=== PATIENT | male | born 1990 | race Caucasian/White ===

== ENCOUNTER → 2019-09-21 09:50 | Outpatient (BNVA) | payer MEDICAID, SELFPAY | PROVIDERS: PCP Family Medicine; Visit Provider Psychiatry & Neurology Psychiatry | DX: F33.2 Major depressive disorder, recurrent severe without psychotic features (principal); F43.12 Post-traumatic stress disorder, chronic; F41.9 Anxiety disorder, unspecified; F17.299 Nicotine dependence, other tobacco product, with unspecified nicotine-induced disorders; F15.20 Other stimulant dependence, uncomplicated | CPT/HCPCS: 99214 ==

== ENCOUNTER 2020-03-13 20:02 | Inpatient (IN) | payer MEDICAID, SELFPAY ==
--- NOTE | 2020-03-13 20:24 | ECG_ITS ---
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 Measurements Intervals Viola Rate: 96 P: 78 OH: 145 QRS: 77 QRSD: 93 T: 64 QT: 356 QTc: 451 Interpretive Statements SINUS RHYTHM NONSPECIFIC T-WAVE ABNORMALITY INTERPRETATION BASED ON A DEFAULT AGE OF 40 YEARS Compared to ECG 05/04/2019 23:56:30 T-wave abnormality now present Sinus tachycardia no longer present Electronically Signed On 03-14-2020 1:23:05 CDT by Jada Puri M.D. [id number]
--- NOTE | 2020-03-13 20:49 | W.ED.PSYCH ---
HPI - Psych General: Chief Complaint: Psychiatric Symptoms Stated Complaint: MHE Time Seen by Provider: 03/13/20 20:44 History of Present Illness: HPI Narrative: Patient comes in today for complaints of suicidal thoughts. Patient had a knife with him and stated that he wanted to cut himself with this. Patient does admit to using methamphetamines today. Patient does have a history of substance abuse but had been not using for several months and today he started using again. Patient had a lot of dissociative thoughts when trying to discuss his reasoning behind using methamphetamines today. I was unable to really interview the patient due to these thoughts. MD complaint: suicidal ideation and altered mental status Context: recent drug abuse (meth) Associated psychiatric symptoms: racing thoughts Associated symptoms: Reports suicidal ideation Review of Systems General: Reports: 10 or more systems reviewed and unremarkable except in HPI and below Psych: Reports: difficulty concentrating and suicidal ideation [facility] ED PFSH: Social History Smoking and tobacco status: current every day smoker cigarettes Years cigarettes smoked: 11 Quit status (tobacco): has tried quititng Number of times tried to quit tobacco: 2 Smoking risk assessment/counseling performed?: Yes Tobacco counseling given: counseling >3 minutes Physical Exam Const: COMMON NORMALS: no acute distress and patient oriented x3 GENERAL APPEARANCE: cooperative HENMT: COMMON NORMALS: normocephalic and Normal external nose present HEAD & SCALP: normal to inspection and normocephalic NOSE: Normal external nose present MOUTH: Normal oral and palatal mucosa present THROAT: posterior oropharynx normal Eye: GENERAL EYE: appearance normal, both eyes and all related structures Neck/C-Spine: COMMON NORMALS: full ROM Chest: COMMONS NORMALS: normal inspection of the chest Resp: COMMON NORMALS: normal respiratory effort EFFORT & INSPECTION: Yes able to speak in complete sentences Cardio: COMMON NORMALS: regular rate and regular rhythm RATE: regular rate RHYTHM: regular rhythm GI: COMMON NORMALS: non-tender Back/Pelvis: COMMON NORMALS: thoracic and lumbar spine normal to inspection Extremity: COMMON NORMALS: normal to inspection Neuro: COMMON NORMALS: patient oriented x3 and moves all extremities Psych: COMMON NORMALS: cooperative APPEARANCE: Yes unkempt ATTITUDE: Yes bizarre ACTIVITY/MOTOR BEHAVIOR: Yes fidgeting and Yes hyperactivity SPEECH: Yes minimal and Yes rapid MOOD & AFFECT: Yes anxious and Yes expansive affect THOUGHT PROCESS: incoherent and disorganized THOUGHT CONTENT: Yes Suicidality present ATTENTION/CONCENTRATION: Yes attention grossly impaired INSIGHT: Poor insight present (Psych) JUDGEMENT: Poor judgement present (Psych) Skin: COMMON NORMALS: no rashes or lesions noted GENERAL SKIN EXAM: no rashes or lesions noted MDM - Psych MDM Narrative: Medical decision making narrative: Patient comes in today in a disheveled appearance speaking incoherently and rapidly at times. Patient reports that he wants to hurt himself with a knife that he turned over to security. Patient was medicated with Benadryl, Haldol, and Ativan which calmed the patient. Vital signs were normal. Skin was warm and dry. No signs of injury was noted. Patient was voluntary to be admitted. Although patient is guarded for risk of elopement. Differential diagnosis includes psychosis acute, suicidality, substance abuse. Laboratory values noted a potassium of 2.9, substance positive for benzos, methamphetamines, and marijuana. Patient was treated for hypokalemia with p.o. potassium and IV fluids. Dr. Knight agreed to admission to [facility]. Dr. Bajwa agreed to orders. Patient agreed to admission. Patient needs admission for treatment of substance abuse and evaluation for suicidal thoughts, and protection of self. Lab Data: Labs: Lab Results 03/13/20 03/13/20 03/13/20 Range/Units 21:05 21:27 21:27 WBC 8.5 (4.0-10.0) 10^3/ uL RBC 4.85 (4.1-5.3) 10^6/u L Hgb 15.0 (11.7-16.6) g/dL Hct 43.3 (42.0-52.0) % MCV 89.3 (80-94) fL MCH 30.9 (28.0-34.0) pg MCHC 34.6 (30.0-36.0) g/dL RDW 12.4 (12.1-15.1) % Plt Count 279 (130-400) 10^3/c mm MPV 10.4 (7.4-10.4) fL Neut % (Auto) 51.8 % Lymph % (Auto) 30.9 % Hamblen % (Auto) 13.5 % Eos % (Auto) 2.7 % Baso % (Auto) 0.7 % Neut # (Auto) 4.41 (1.8-7.7) 10^3/u L Lymph # (Auto) 2.6 (0.8-4.8) 10^3/u L Hamblen # (Auto) 1.2 H (0.2-0.9) 10^3/u L Eos # (Auto) 0.2 (0.0-0.8) 10^3/u L Baso # (Auto) 0.1 (0.0-0.1) 10^3/u L Nucleated RBC % (a uto) 0 % Nucleated RBCs # 0.0 /100WBC Sodium 136 (136-145) mmol/L Potassium 2.9 L (3.5-5.1) mmol/L Chloride 101 (98-107) mmol/L Carbon Dioxide 20 L (22-29) mmol/L Anion Gap 17.9 (5-19) BUN 16 (6-20) mg/dL Creatinine 0.9 (0.7-1.2) mg/dL GFR Calculation 100.5 (90-130) mL/min Glucose 181 H (65-115) mg/dL Calculated Osmolal ity 283 L (285-295) mOsm/k g Calcium 9.1 (8.5-10.5) mg/dL Total Bilirubin 0.7 (0.15-1.2) mg/dL AST 51 H (0-40) U/L ALT 52 H (0-41) U/L Alkaline Phosphata se 74 (40-130) IU/L Total Protein 7.8 (6.6-8.7) g/dL Albumin 4.8 (3.5-5.2) g/dL Globulin 3.0 (1.3-4.6) g/dL TSH 0.85 (0.27-4.20) uIU/ mL Salicylates < 0.3 L (3-10) mg/dL Urine Opiates Scre en Negative (Negative) ng/mL Acetaminophen < 5.0 L (10-30) ug/mL Ur Barbiturates Sc reen Negative (Negative) ng/mL Phenytoin 0.8 L (10-20) ug/mL Valproic Acid 2.8 L (50-100) ug/mL Carbamazepine 2.0 L (4.0-12.0) ug/mL Ur Phencyclidine S crn Negative (Negative) ng/mL Ur Amphetamines Sc reen Positive H (Negative) ng/mL U Benzodiazepines Scrn Positive H (Negative) ng/mL Halbur (0.6-1.2) mmol/L Urine Cocaine Scre en Negative (Negative) ng/mL U Marijuana (THC) Screen Positive H (Negative) ng/mL Ethyl Alcohol < 10 (0-10) mg/dL 03/13/20 Range/Units 21:27 WBC (4.0-10.0) 10^3/ uL RBC (4.1-5.3) 10^6/u L Hgb (11.7-16.6) g/dL Hct (42.0-52.0) % MCV (80-94) fL MCH (28.0-34.0) pg MCHC (30.0-36.0) g/dL RDW (12.1-15.1) % Plt Count (130-400) 10^3/c mm MPV (7.4-10.4) fL Neut % (Auto) % Lymph % (Auto) % Hamblen % (Auto) % Eos % (Auto) % Baso % (Auto) % Neut # (Auto) (1.8-7.7) 10^3/u L Lymph # (Auto) (0.8-4.8) 10^3/u L Hamblen # (Auto) (0.2-0.9) 10^3/u L Eos # (Auto) (0.0-0.8) 10^3/u L Baso # (Auto) (0.0-0.1) 10^3/u L Nucleated RBC % (a uto) % Nucleated RBCs # /100WBC Sodium (136-145) mmol/L Potassium (3.5-5.1) mmol/L Chloride (98-107) mmol/L Carbon Dioxide (22-29) mmol/L Anion Gap (5-19) BUN (6-20) mg/dL Creatinine (0.7-1.2) mg/dL GFR Calculation (90-130) mL/min Glucose (65-115) mg/dL Calculated Osmolal ity (285-295) mOsm/k g Calcium (8.5-10.5) mg/dL Total Bilirubin (0.15-1.2) mg/dL AST (0-40) U/L ALT (0-41) U/L Alkaline Phosphata se (40-130) IU/L Total Protein (6.6-8.7) g/dL Albumin (3.5-5.2) g/dL Globulin (1.3-4.6) g/dL TSH (0.27-4.20) uIU/ mL Salicylates (3-10) mg/dL Urine Opiates Scre en (Negative) ng/mL Acetaminophen (10-30) ug/mL Ur Barbiturates Sc reen (Negative) ng/mL Phenytoin (10-20) ug/mL Valproic Acid (50-100) ug/mL Carbamazepine (4.0-12.0) ug/mL Ur Phencyclidine S crn (Negative) ng/mL Ur Amphetamines Sc reen (Negative) ng/mL U Benzodiazepines Scrn (Negative) ng/mL Halbur 0.1 L (0.6-1.2) mmol/L Urine Cocaine Scre en (Negative) ng/mL U Marijuana (THC) Screen (Negative) ng/mL Ethyl Alcohol (0-10) mg/dL Discharge Plan Discharge Patient Disposition: Admitted As Inpatient Admit Provider: Manish Knight Clinical Impression: Acute psychosis Drug-induced psychotic disorder Qualifiers: Complication of substance-induced condition: with unspecified complication Qualified Code(s): F19.959 - Other psychoactive substance use, unspecified with psychoactive substance-induced psychotic disorder, unspecified Condition: Stable Referrals: Maninder Cesar MD [Primary Care Provider] - Discharge Date/Time: 03/14/20 05:51 Coding Level of Care Code ED Group Fitness Assistant Department Head for Chg Fwd Exam Comprehensive
[2020-03-13] MEDS: diphenhydrAMINE 50 mg/mL SDV 1mL IM (21:05)
[2020-03-13] MEDS: LORazepam 2 mg/mL INJ 1 mL IM (21:06)
[2020-03-13] MEDS: haloperidol inj 5 mg/mL INJ 1 mL IM (21:06)
[2020-03-13 21:07] VITALS: BP 103/68; PULSE 90; RESP 20; O2SAT 95
[2020-03-13 21:34] LABS: Basophils # 0.1 10^3/uL (0.0-0.1); Basophils % 0.7 %; Eosinophils # 0.2 10^3/uL (0.0-0.8); Eosinophils % 2.7 %; Hematocrit 43.3 % (42.0-52.0); Lymphocytes # 2.6 10^3/uL (0.8-4.8); Lymphocytes % 30.9 %; Mean Corpuscular HGB Conc 34.6 g/dL (30.0-36.0); Mean Corpuscular Hemoglobin 30.9 pg (28.0-34.0); Mean Corpuscular Volume 89.3 fL (80-94); Mean Platelet Volume 10.4 fL (7.4-10.4); Monocytes # 1.2 10^3/uL (0.2-0.9); Monocytes % 13.5 %; Neutrophils # 4.41 10^3/uL (1.8-7.7); Neutrophils % 51.8 %; Nucleated Red Blood Cells % 0 %; Platelet Count 279 10^3/cmm (130-400); Red Blood Count 4.85 10^6/uL (4.1-5.3); Red Cell Distribution Width 12.4 % (12.1-15.1); White Blood Count 8.5 10^3/uL (4.0-10.0)
[2020-03-13 22:00] VITALS: BP 112/72; PULSE 99; RESP 20; O2SAT 99
[2020-03-13 22:01] LABS: Alanine Aminotransferase 52 U/L (0-41); Albumin Level 4.8 g/dL (3.5-5.2); Alkaline Phosphatase 74 IU/L (40-130); Anion Gap 17.9 (5-19); Aspartate Amino Transferase 51 U/L (0-40); Blood Urea Nitrogen 16 mg/dL (6-20); Calcium 9.1 mg/dL (8.5-10.5); Carbon Dioxide 20 mmol/L (22-29); Chloride 101 mmol/L (98-107); Glomerular Filtration Rate 100.5 mL/min (90-130); Glucose 181 mg/dL (65-115); Osmolality Calculated 283 mOsm/kg (285-295); Phenytoin Dilantin 0.8 ug/mL (10-20); Sodium 136 mmol/L (136-145); Thyroid Stimulating Hormone 0.85 uIU/mL (0.27-4.20); Total Bilirubin 0.7 mg/dL (0.15-1.2); Total Protein 7.8 g/dL (6.6-8.7); Valproic Acid Level 2.8 ug/mL (50-100)
[2020-03-13 22:16] LABS: Acetaminophen < 5.0 ug/mL (10-30); Alcohol Level < 10 mg/dL (0-10); Salicylate < 0.3 mg/dL (3-10)
[2020-03-13 22:20] LABS: Lithium 0.1 mmol/L (0.6-1.2); Potassium 2.9 mmol/L (3.5-5.1)
[2020-03-13 22:22] LABS: Amphetamines Screen Urine Positive (Negative); Barbiturates Screen Urine Negative (Negative); Benzodiazepines Screen Urine Positive (Negative); Cocaine Screen Urine Negative (Negative); Opiate Screen Urine Negative (Negative); PCP Screen Urine Negative (Negative); THC Screen Urine Positive (Negative)
[2020-03-13] MEDS: potassium chloride ER 10 mEq Tablet 40 MEQ PO (22:54)
[2020-03-13] MEDS: sodium chloride 0.9% 1,000 ML 999 ML IV (23:01)
[2020-03-14 00:45] VITALS: BP 101/55; PULSE 70; RESP 18; TEMP 36.6
[2020-03-14 04:00] VITALS: BP 98/63; PULSE 62; RESP 16
[2020-03-14 05:22] LABS: Anion Gap 11.6 (5-19); Blood Urea Nitrogen 14 mg/dL (6-20); Carbon Dioxide 24 mmol/L (22-29); Chloride 106 mmol/L (98-107); Glomerular Filtration Rate 134.3 mL/min (90-130); Glucose 98 mg/dL (65-115); Osmolality Calculated 282 mOsm/kg (285-295); Potassium 3.6 mmol/L (3.5-5.1); Sodium 138 mmol/L (136-145)
[2020-03-14 05:34] VITALS: BP 102/50; PULSE 62; RESP 18; O2SAT 98
[2020-03-14 06:02] VITALS: BP 137/88; PULSE 73; RESP 13; O2SAT 99
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
--- NOTE | 2020-03-14 13:11 | PC.RESP ---
Smoking Cessation sent to patient.
[2020-03-14 14:00] VITALS: BP 95/55; PULSE 60; RESP 16; TEMP 36.6; O2SAT 97
[2020-03-14] MEDS: trazodone 50 mg Tablet PO (21:25)
[2020-03-14] MEDS: hyDROXYzine 25 mg Capsule 50 MG PO (21:25)
[2020-03-14] MEDS: OLANZapine 5 mg ODT PO (21:25)
[2020-03-14 22:00] VITALS: RESP 15
[2020-03-15 06:00] VITALS: BP 98/65; PULSE 61; RESP 16; TEMP 36.7; O2SAT 97
[2020-03-15] MEDS: ARIPiprazole 10 mg Tablet PO (11:56)
--- NOTE | 2020-03-15 12:45 | P.PN_ITS ---
Subjective NPU Subjective: Interval history: Faisal presents today a little more with it and able to have conversations and express opinions about things, as he was mostly snowed as he is going through methamphetamine withdrawal. He has been off his medication for a while, but we discussed the risks, benefits, and alternatives of restarting those medications at an appropriate dose given the time off the medications. He understood and agreed to proceed as is documented in this note. He continues to be fairly lethargic and isolative, and reports that he is not sure what he really wants to do but is open to first starting the medication and getting that back on track. Mental Status Exam MSE Comments: This is a well-nourished, well-developed white male with adequate dress grooming and I contact. No abnormal movements except for psychomotor retardation. Cooperative with exam no acute distress speech was limited and decreased rate and volume mood described as tired; affect congruent. Thought process organized. Thought content: Patient denied any suicidal or homicidal ideations, no delusions were noted, he denied any auditory or visual hallucinations. Attention and concentration were intact and memory appears reliable with no more formally tested. He is alert and oriented ?3 insight and judgment are impaired. Impulse control is impaired. Vitals/I&O/Wt Last Vital Signs Temp 98.0 F 03/15/20 06:00 Pulse 61 03/15/20 06:00 Resp 16 03/15/20 06:00 BP 98/65 03/15/20 06:00 Pulse Ox 97 03/15/20 06:00 Weight last 48 hrs Weight 72.575 kg Data NPU : 03/13/20 21:27 03/14/20 05:01 A&P Additional A&P Information (1) Acute psychosis: (2) Drug-induced psychotic disorder: (3) Bipolar disorder: There is a 30-year-old white male with a long history of psychosis, methamphetamine use possible borderline mental functioning versus intellectual disability who presents off of his medication and relapsing on methamphetamine. 1. Continue current medication. 2. Continue every 15 minute checks for safety. 3. Encourage individual, group and milieu therapy. 4. Explore opportunities at sober living facilities at the highest level of treatment to which she is willing to commit. Involuntary Hold Information 96 Hour Hold: 96 Hour Involuntary Admission: No Attestations NPU Medical Necessity Statement*: Inpatient hospitalization is medically necessary in the clinically appropriate intervention at this time. We will monitor medications and make adjustments as indicated. Likely length of stay 3-5 days. Coding Level of Care Code Acute [employer] for Elizabeth Escamilla
[2020-03-15 14:00] VITALS: BP 103/69; PULSE 85; RESP 18; TEMP 36.6; O2SAT 96
[2020-03-15] MEDS: quetiapine 100 mg Tablet PO (14:10)
[2020-03-15] MEDS: BuSPIRONE 5 mg Tablet PO ×2 (14:10→22:01)
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
[2020-03-15 22:00] VITALS: BP 104/53; PULSE 67; RESP 17; TEMP 36.6; O2SAT 95
[2020-03-15] MEDS: mirtazapine 15 mg Tablet PO (22:00)
[2020-03-15] MEDS: hyDROXYzine 25 mg Capsule 50 MG PO (22:00)
[2020-03-15] MEDS: trazodone 50 mg Tablet PO (22:00)
[2020-03-15] MEDS: OLANZapine 5 mg ODT PO (22:01)
[2020-03-15] MEDS: quetiapine 100 mg Tablet 200 MG PO (22:01)
[2020-03-16 06:00] VITALS: BP 107/58; PULSE 55; RESP 16; TEMP 36.8; O2SAT 97
[2020-03-16] MEDS: ARIPiprazole 10 mg Tablet PO (08:35)
[2020-03-16] MEDS: BuSPIRONE 5 mg Tablet PO ×3 (08:35→21:13)
--- NOTE | 2020-03-16 11:09 | P.PN_ITS ---
Subjective NPU Subjective: Interval history: The patient presents today being more conversant and engaged on the unit. He continues to have moments of irritability and challenging interactions with staff. However, he is showing slow improvement and continues to endorse a desire to continue the medications and look for options regarding sober living treatment. He denies any side effects. The medications have been restarted and he is sleeping a lot and eating okay. Mental Status Exam MSE Comments: This is a well-nourished, well-developed white male with adequate dress grooming and I contact. No abnormal movements except for resolving psychomotor retardation. Cooperative with exam no acute distress. speech was limited and decreased rate and volume mood described as a little better; affect congruent. Thought process organized. Thought content: Patient denied any suicidal or homicidal ideations, no delusions were noted, he denied any auditory or visual hallucinations. Attention and concentration were intact and memory appears reliable with no more formally tested. He is alert and monet ented ?3 insight and judgment are impaired. Impulse control is impaired. Vitals/I&O/Wt Last Vital Signs Temp 98.3 F 03/16/20 06:00 Pulse 77 03/16/20 20:41 Resp 20 H 03/16/20 20:41 BP 100/65 03/16/20 20:41 Pulse Ox 95 03/16/20 20:41 Weight last 48 hrs Weight 72.745 kg Data NPU : 03/13/20 21:27 03/14/20 05:01 A&P Additional A&P Information (1) Acute psychosis: (2) Drug-induced psychotic disorder: (3) Bipolar disorder: There is a 30-year-old white male with a long history of psychosis, me thamphetamine use possible borderline mental functioning versus intellectual disability who presents off of his medication and relapsing on methamphetamine. 1. Continue current medication. 2. Continue every 15 minute checks for safety. 3. Encourage individual, group and milieu therapy. 4. Explore opportunities at sober living facilities at the highest level of treatment to which he is willing to commit. Involuntary Hold Information 96 Hour Hold: 96 Hour Involuntary Admission: No Attestations NPU Medical Necessity Statement*: Inpatient hospitalization is medically necessary in the clinically appropriate intervention at this time. We will monitor medications and make adjustments as indicated. Likely length of stay 2-4 days. Coding Level of Care Code Acute [employer] for Elizabeth Escamilla
[2020-03-16] MEDS: quetiapine 100 mg Tablet PO (14:53)
[2020-03-16] MEDS: LORazepam 2 mg/mL INJ 1 mL IM (15:22)
[2020-03-16] MEDS: haloperidol inj 5 mg/mL INJ 1 mL IM (15:22)
[2020-03-16] MEDS: diphenhydrAMINE 50 mg/mL SDV 1mL IM (15:22)
--- NOTE | 2020-03-16 15:23 | PC.NURSE ---
Patient behavior Patient came to the desk and to leave AMA. Explained we would have to call the doctor. He got on the phone and was yelling and then slamming the phone to the point it fell apart. We tried verbal de-escalation while notifying doctor. Called security, when Bryson arrived, patient became irate and enraged. Security tried to get patient in the bathroom for safety of staff and patients. Code 10 was called and boiler house operator and other staff showed up. While medications were being drawn staff placed patient in a safe hold and took him to the restraint room and placed him in 4 point restraints. Patient was given 50 benadryl IM, 5 haldol Im, and 2 ativan IM. Will continue to monitor.
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
[2020-03-16 20:41] VITALS: BP 100/65; PULSE 77; RESP 20; O2SAT 95
[2020-03-16] MEDS: mirtazapine 15 mg Tablet PO (21:13)
[2020-03-16] MEDS: quetiapine 100 mg Tablet 200 MG PO (21:14)
[2020-03-17 06:00] VITALS: RESP 15
[2020-03-17] MEDS: BuSPIRONE 5 mg Tablet PO ×2 (08:49→13:35)
[2020-03-17] MEDS: ARIPiprazole 10 mg Tablet PO (08:49)
[2020-03-17] MEDS: quetiapine 100 mg Tablet PO (13:35)
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
[2020-03-17 14:37] VITALS: RESP 15
== END 2020-03-17 14:45 | disposition home or self-care (01) | DRG 885 ==
LOC: ER 23:00 → NP 23:09
PROVIDERS: Admitting Provider Psychiatry & Neurology Psychiatry; Emergency Provider Emergency Medicine; PCP Family Medicine; Visit Provider Psychiatry & Neurology Psychiatry
DX: F23 Brief psychotic disorder (principal); R45.851 Suicidal ideations; F19.959 Other psychoactive substance use, unspecified with psychoactive substance-induced psychotic disorder, unspecified; F31.9 Bipolar disorder, unspecified; Z91.5 Personal history of self-harm
CPT/HCPCS: 12345; 80048; 80053; 80156; 80164; 80178; 80185; 80306; 80307; 84443; 85025; 93005; 96372; 99284; J1200; J1630; J2060; J3480; J7030

== ENCOUNTER 2020-06-23 08:39 | Inpatient (IN) | payer MEDICAID, SELFPAY ==
[2020-06-23 08:43] VITALS: BP 143/95; PULSE 113; RESP 18; TEMP 36.4; O2SAT 99; BMI 21.5
--- NOTE | 2020-06-23 08:44 | ECG_ITS ---
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 Measurements Intervals [place] Rate: 102 P: 55 CO: 147 QRS: 57 QRSD: 89 T: 48 QT: 334 QTc: 435 Interpretive Statements SINUS TACHYCARDIA ABNORMAL RHYTHM ECG Compared to ECG 03/13/2020 20:37:15 Sinus rhythm no longer present T-wave abnormality no longer present Electronically Signed On 06-24-2020 7:20:03 CDT by Dia Regan M.D. [id number]
--- NOTE | 2020-06-23 08:48 | ED_ITS ---
Documented by User: YURI Nugent 06/23/20 11:09 HPI - Psych General: Chief Complaint: Psychiatric Symptoms Stated Complaint: SI Time Seen by Provider: 06/23/20 08:43 History of Present Illness: HPI Narrative: Patient is a 30-year-old male who comes to the ED with SI. Past medical history of methamphetamine abuse and bipolar disorder. He was seen here for same complaint on March 13 and was admitted to the [facility]. Patient last used methamphetamines about 2 days ago. He said he has been feeling suicidal for the past couple days and states that last night he was having thoughts of suicide by overdose but talk to his mom to help him. Patient also said he feels very anxious and agitated. He denies any visual hallucinations but states symptoms using drugs he does have some auditory hallucinations but states that tell him to do anything. He says he is recently feeling depressed due to stresses of life. He says he has not been sleeping well and has not been eating much. Denies any HI. Patient wants to be admitted to the [facility] to get help with his drug addiction. Patient says he is not taking any of his current psych meds and says that he is out from all his medications. Associated symptoms: Reports auditory hallucinations (hears voices when using meth, but denies voices telling him to do anything.), depression and suicidal ideation; Deny visual hallucinations or homicidal ideation Review of Systems Const: Reports: change in appetite (eating less); Denies: fever(s), chills or fatigue Eyes: Denies: change in vision or eye discomfort ENMT: Denies: throat pain, odynophagia, nasal discharge or nasal congestion Card: Denies: chest pain, palpitations, edema, swelling of feet/ankles, dyspnea on exertion or orthopnea Resp: Denies: dyspnea, productive cough or non-productive cough GI: Denies: abdominal pain, nausea, vomiting, diarrhea, constipation or hematochezia : Denies: flank pain, difficulty urinating, dysuria or hematuria Musc: Denies: neck pain, back pain or extremity swelling Skin/Breast: Denies: rash or new lesions Neuro: Denies: headache(s), numbness in extremities or weakness in extremities Psych: Reports: anxiety, depression, sleeping less, irritability, auditory hallucinations (hears voices when using meth, but denies voices telling him to do anything.) and suicidal ideation; Denies: visual hallucinations or homicidal ideation PFSH ED PFSH: Medical History Bipolar disorder Social History Smoking and tobacco status: current every day smoker cigarettes Years cigarettes smoked: 11 Quit status (tobacco): has tried quititng Number of times tried to quit tobacco: 2 Smoking risk assessment/counseling performed?: Yes Tobacco counseling given: counseling >3 minutes Physical Exam Const: COMMON NORMALS: no acute distress, patient oriented x3 and alert GENERAL APPEARANCE: cooperative, comfortable and anxious HENMT: COMMON NORMALS: normocephalic HEAD & SCALP: normocephalic MOUTH: Normal oral and palatal mucosa present THROAT: posterior oropharynx normal and uvula midline Neck/C-Spine: COMMON NORMALS: supple GENERAL: Yes normal visual inspection Resp: COMMON NORMALS: normal respiratory effort, No retractions, No use of accessory muscles and clear to auscultation bilaterally AUSCULTATION: clear to auscultation bilaterally Cardio: COMMON NORMALS: regular rate, regular rhythm, S1 normal heart sound present, S2 normal heart sound present, No gallops present (Cardio), No clicks present (Cardio), No murmurs present (Cardio) and Peripheral pulses 2+ throughout RATE: regular rate RHYTHM: regular rhythm HEART SOUNDS: S1 normal heart sound present and S2 normal heart sound present PERIPHERAL PULSES: Peripheral pulses 2+ throughout GI: COMMON NORMALS: Normal to inspection, nondistended, normoactive bowel sounds present, Soft to palpation, non-tender and no masses PALPATION: Yes Soft to palpation : COMMON NORMALS: Yes no CVA tenderness BLADDER/KIDNEY EXAM: Yes no CVA tenderness Back/Pelvis: COMMON NORMALS: no CVA tenderness Extremity: COMMON NORMALS: normal to inspection and no pedal edema Neuro: COMMON NORMALS: patient oriented x3 and moves all extremities SENSORIUM/ORIENTATION: Yes alert Psych: COMMON NORMALS: Normal thought process present and speech normal APPEARANCE: Yes grossly normal ATTITUDE: Yes calm ACTIVITY/MOTOR BEHAVIOR: Yes appropriate eye contact, Yes fidgeting and Yes restless SPEECH: Yes normal speech MOOD & AFFECT: Yes anxious and Yes irritable THOUGHT PROCESS: Normal thought process present THOUGHT CONTENT: Yes Suicidality pres ent, No Homicidality present and Yes Hallucination(s) present auditory (Hears voices sometimes after he uses drugs. He says they are not telling him anything specific.); not visual ATTENTION/CONCENTRATION: Yes attention grossly intact and Yes concentration grossly intact MEMORY/COGNITION: Yes memory grossly intact and Yes cognition grossly intact INSIGHT: Fair insight present (Psych) JUDGEMENT: Limited judgement present (Psych) (Patient appears hyperactive and fidgety is probably still under the influence of methamphetamines so judgment is impaired.) Skin: GENERAL SKIN EXAM: dry skin MDM - Psych MDM Narrative: Medical decision making narrative: Patient is a 30-year-old male who comes to the ED with SI and drug abuse. Past medical history of methamphetamine abuse and bipolar disorder. He is currently not taking any of his medications. Patient recently used methamphetamines approximately 2 days ago. He is having thoughts of suicide by overdose. Patient says he would like to be admitted to the [facility] to get help. I talked with Dr. Salazar about patient case and he accepted admission to [facility]. Wrote an affidavit and left it in the chart to be used as needed if patient changes his mind and is trying to leave. Dr. Davis put in admission orders. Lab Data: Attestation: I reviewed the patient's lab results. Labs: Lab Results 06/23/20 06/23/20 06/23/20 Range/Units 09:00 09:00 10:03 WBC 10.3 H (4.0-10.0) 10^3/ uL RBC 4.73 (4.1-5.3) 10^6/u L Hgb 14.4 (11.7-16.6) g/dL Hct 43.6 (42.0-52.0) % MCV 92.2 (80-94) fL MCH 30.4 (28.0-34.0) pg MCHC 33.0 (30.0-36.0) g/dL RDW 12.7 (12.1-15.1) % Plt Count 370 (130-400) 10^3/c mm MPV 9.5 (7.4-10.4) fL Neut % (Auto) 50.3 % Lymph % (Auto) 33.4 % Bradley % (Auto) 9.1 % Eos % (Auto) 5.6 % Baso % (Auto) 1.0 % Neut # (Auto) 5.19 (1.8-7.7) 10^3/u L Lymph # (Auto) 3.4 (0.8-4.8) 10^3/u L Bradley # (Auto) 0.9 (0.2-0.9) 10^3/u L Eos # (Auto) 0.6 (0.0-0.8) 10^3/u L Baso # (Auto) 0.1 (0.0-0.1) 10^3/u L Nucleated RBC % (a uto) 0 % Nucleated RBCs # 0.0 /100WBC Sodium (136-145) mmol/L Potassium (3.5-5.1) mmol/L Chloride (98-107) mmol/L Carbon Dioxide (22-29) mmol/L Anion Gap (5-19) BUN (6-20) mg/dL Creatinine (0.7-1.2) mg/dL GFR Calculation (90-130) mL/min Glucose (65-115) mg/dL Calculated Osmolal ity (285-295) mOsm/k g Calcium (8.5-10.5) mg/dL Total Bilirubin (0.15-1.2) mg/dL AST (0-40) U/L ALT (0-41) U/L Alkaline Phosphata se (40-130) IU/L Total Protein (6.6-8.7) g/dL Albumin (3.5-5.2) g/dL Globulin (1.3-4.6) g/dL Urine Color Straw (Yellow) Urine Appearance Clear (CLEAR) Urine pH 7 (5-7) Ur Specific Gravit y 1.005 (1.005-1.030) Urine Protein Neg (Negative) Urine Glucose (UA) Norm (Normal) Urine Ketones Negative (Negative) Urine Blood Neg (Negative) Urine Nitrate Negative (Negative) Urine Bilirubin Neg (Negative) Urine Urobilinogen Norm (Negative) mg/dL Ur Leukocyte Daphne ase Negative (Negative) Salicylates (3-10) mg/dL Urine Opiates Scre en Negative (Negative) ng/mL Acetaminophen (10-30) ug/mL Ur Barbiturates Sc reen Negative (Negative) ng/mL Ur Phencyclidine S crn Negative (Negative) ng/mL Ur Amphetamines Sc reen Positive H (Negative) ng/mL U Benzodiazepines Scrn Negative (Negative) ng/mL Urine Cocaine Scre en Negative (Negative) ng/mL U Marijuana (THC) Screen Positive H (Negative) ng/mL Ethyl Alcohol (0-10) mg/dL 06/23/20 Range/Units 10:03 WBC (4.0-10.0) 10^3/ uL RBC (4.1-5.3) 10^6/u L Hgb (11.7-16.6) g/dL Hct (42.0-52.0) % MCV (80-94) fL MCH (28.0-34.0) pg MCHC (30.0-36.0) g/dL RDW (12.1-15.1) % Plt Count (130-400) 10^3/c mm MPV (7.4-10.4) fL Neut % (Auto) % Lymph % (Auto) % Bradley % (Auto) % Eos % (Auto) % Baso % (Auto) % Neut # (Auto) (1.8-7.7) 10^3/u L Lymph # (Auto) (0.8-4.8) 10^3/u L Bradley # (Auto) (0.2-0.9) 10^3/u L Eos # (Auto) (0.0-0.8) 10^3/u L Baso # (Auto) (0.0-0.1) 10^3/u L Nucleated RBC % (a uto) % Nucleated RBCs # /100WBC Sodium 140 (136-145) mmol/L Potassium 3.8 (3.5-5.1) mmol/L Chloride 104 (98-107) mmol/L Carbon Dioxide 29 (22-29) mmol/L Anion Gap 10.8 (5-19) BUN 7 (6-20) mg/dL Creatinine 0.6 L (0.7-1.2) mg/dL GFR Calculation 160.4 H (90-130) mL/min Glucose 98 (65-115) mg/dL Calculated Osmolal ity 288 (285-295) mOsm/k g Calcium 9.7 (8.5-10.5) mg/dL Total Bilirubin 0.2 (0.15-1.2) mg/dL AST 43 H (0-40) U/L ALT 70 H (0-41) U/L Alkaline Phosphata se 91 (40-130) IU/L Total Protein 7.1 (6.6-8.7) g/dL Albumin 4.2 (3.5-5.2) g/dL Globulin 2.9 (1.3-4.6) g/dL Urine Color (Yellow) Urine Appearance (CLEAR) Urine pH (5-7) Ur Specific Gravit y (1.005-1.030) Urine Protein (Negative) Urine Glucose (UA) (Normal) Urine Ketones (Negative) Urine Blood (Negative) Urine Nitrate (Negative) Urine Bilirubin (Negative) Urine Urobilinogen (Negative) mg/dL Ur Leukocyte Daphne ase (Negative) Salicylates < 0.3 L (3-10) mg/dL Urine Opiates Scre en (Negative) ng/mL Acetaminophen < 5.0 L (10-30) ug/mL Ur Barbiturates Sc reen (Negative) ng/mL Ur Phencyclidine S crn (Negative) ng/mL Ur Amphetamines Sc reen (Negative) ng/mL U Benzodiazepines Scrn (Negative) ng/mL Urine Cocaine Scre en (Negative) ng/mL U Marijuana (THC) Screen (Negative) ng/mL Ethyl Alcohol < 10 (0-10) mg/dL EKG Data^: EKG 1: Attestation: I personally reviewed and interpreted this EKG as follows: EKG interpretation date: 06/23/20 Interpretation: Sinus tachycardia, 102 bpm, no ST segment elevation depression seen. Discharge Plan Discharge Patient Disposition: Admitted As Inpatient Clinical Impression: Suicidal ideation, Drug-induced psychotic disorder, Methamphetamine abuse Condition: Stable Referrals: Maninder Cesar MD [Primary Care Provider] - Coding Level of Care Code ED Slubber Tender for Chg Fwd Exam Comprehensive Documented by User: Gucci Davis DO 06/23/20 10:41 HPI - Psych General: Chief Complaint: Psychiatric Symptoms Stated Complaint: SI Time Seen by Provider: 06/23/20 08:43 History of Present Illness: HPI Narrative: 30-year-old male initially seen by our PA Lonnie Wagner. He has a history of methamphetamine abuse he is quite agitated. He had thoughts of suicide intermittently last week they have been progressively more intense. He also reports having auditory and visual hallucinations. Denies any recent flulike symptoms cough or cold. Last time he used methamphetamines he tells me was yesterday. MD complaint: suicidal ideation Onset (ago): day(s) Duration: intermittent and getting worse History of same: Yes Relieving factors: none Exacerbating factors: none Context: recent drug abuse Associated psychiatric symptoms: depression, suicidal ideation, racing thoughts, auditory hallucinations and visual hallucinations Associated symptoms: Reports auditory hallucinations, visual hallucinations and suicidal ideation Treatments prior to arrival: none If self harm: admits thoughts of self harm Review of Systems Const: Denies: fever(s), chills, body aches, change in appetite, fatigue or malaise ENMT: Denies: throat pain, ear or mastoid pain, nasal discharge or nasal c ongestion Card: Denies: chest pain, edema, dyspnea on exertion or orthopnea Resp: Denies: dyspnea, productive cough or non-productive cough GI: Denies: abdominal pain, nausea, vomiting, hematemesis, coffee ground emesis, diarrhea, constipation, bloating, hematochezia or melena : Denies: flank pain, dysuria, urinary frequency or urinary urgency Skin/Breast: Denies: rash or pruritus Psych: Reports: visual hallucinations, auditory hallucinations and suicidal ideation [facility] ED PFSH: Medical History Bipolar disorder Social History Smoking and tobacco status: current every day smoker cigarettes Years cigarettes smoked: 11 Quit status (tobacco): has tried quititng Number of times tried to quit tobacco: 2 Smoking risk assessment/counseling performed?: Yes Tobacco counseling given: counseling >3 minutes Physical Exam Const: COMMON NORMALS: no acute distress GENERAL APPEARANCE: cooperative and comfortable ORIENTATION/CONSCIOUSNESS: Yes awake, Yes oriented to person, Yes oriented to place and Yes oriented to time HENMT: COMMON NORMALS: normocephalic, atraumatic and hearing grossly normal bilaterally HEAD & SCALP: normocephalic and atraumatic Neck/C-Spine: COMMON NORMALS: no JVD Resp: COMMON NORMALS: normal respiratory effort, No retractions, No use of accessory muscles and clear to auscultation bilaterally AUSCULTATION: clear to auscultation bilaterally Cardio: COMMON NORMALS: no JVD, regular rate, regular rhythm and No murmurs present (Cardio) RATE: regular rate RHYTHM: regular rhythm GI: COMMON NORMALS: Soft to palpation and No hepatosplenomegaly present AUSCULTATION: Yes normoactive bowel sounds PALPATION: Yes Soft to palpation, No Tenderness to palpation present (GI), No Guarding due to palpation present (GI) and Yes No hepatosplenomegaly present Extremity: COMMON NORMALS: normal to inspection, capillary refill normal, no clubbing, cyanosis or edema, no calf tenderness and no pedal edema Neuro: SENSORIUM/ORIENTATION: Yes oriented to person, Yes oriented to place and Yes oriented to time Skin: COMMON NORMALS: no rashes or lesions noted GENERAL SKIN EXAM: no rashes or lesions noted MDM - Psych MDM Narrative: Medical decision making narrative: Reviewed chart medically cleared to go to psych. Orders written. Lonnie Wagner is talked to Dr. Summers. Lab Data: Labs: Lab Results 06/23/20 06/23/20 06/23/20 Range/Units 09:00 09:00 10:03 WBC 10.3 H (4.0-10.0) 10^3/ uL RBC 4.73 (4.1-5.3) 10^6/u L Hgb 14.4 (11.7-16.6) g/dL Hct 43.6 (42.0-52.0) % MCV 92.2 (80-94) fL MCH 30.4 (28.0-34.0) pg MCHC 33.0 (30.0-36.0) g/dL RDW 12.7 (12.1-15.1) % Plt Count 370 (130-400) 10^3/c mm MPV 9.5 (7.4-10.4) fL Neut % (Auto) 50.3 % Lymph % (Auto) 33.4 % Bradley % (Auto) 9.1 % Eos % (Auto) 5.6 % Baso % (Auto) 1.0 % Neut # (Auto) 5.19 (1.8-7.7) 10^3/u L Lymph # (Auto) 3.4 (0.8-4.8) 10^3/u L Bradley # (Auto) 0.9 (0.2-0.9) 10^3/u L Eos # (Auto) 0.6 (0.0-0.8) 10^3/u L Baso # (Auto) 0.1 (0.0-0.1) 10^3/u L Nucleated RBC % (a uto) 0 % Nucleated RBCs # 0.0 /100WBC Sodium (136-145) mmol/L Potassium (3.5-5.1) mmol/L Chloride (98-107) mmol/L Carbon Dioxide (22-29) mmol/L Anion Gap (5-19) BUN (6-20) mg/dL Creatinine (0.7-1.2) mg/dL GFR Calculation (90-130) mL/min Glucose (65-115) mg/dL Calculated Osmolal ity (285-295) mOsm/k g Calcium (8.5-10.5) mg/dL Total Bilirubin (0.15-1.2) mg/dL AST (0-40) U/L ALT (0-41) U/L Alkaline Phosphata se (40-130) IU/L Total Protein (6.6-8.7) g/dL Albumin (3.5-5.2) g/dL Globulin (1.3-4.6) g/dL Urine Color Straw (Yellow) Urine Appearance Clear (CLEAR) Urine pH 7 (5-7) Ur Specific Gravit y 1.005 (1.005-1.030) Urine Protein Neg (Negative) Urine Glucose (UA) Norm (Normal) Urine Ketones Negative (Negative) Urine Blood Neg (Negative) Urine Nitrate Negative (Negative) Urine Bilirubin Neg (Negative) Urine Urobilinogen Norm (Negative) mg/dL Ur Leukocyte Daphne ase Negative (Negative) Salicylates (3-10) mg/dL Urine Opiates Scre en Negative (Negative) ng/mL Acetaminophen (10-30) ug/mL Ur Barbiturates Sc reen Negative (Negative) ng/mL Ur Phencyclidine S crn Negative (Negative) ng/mL Ur Amphetamines Sc reen Positive H (Negative) ng/mL U Benzodiazepines Scrn Negative (Negative) ng/mL Urine Cocaine Scre en Negative (Negative) ng/mL U Marijuana (THC) Screen Positive H (Negative) ng/mL Ethyl Alcohol (0-10) mg/dL 06/23/20 Range/Units 10:03 WBC (4.0-10.0) 10^3/ uL RBC (4.1-5.3) 10^6/u L Hgb (11.7-16.6) g/dL Hct (42.0-52.0) % MCV (80-94) fL MCH (28.0-34.0) pg MCHC (30.0-36.0) g/dL RDW (12.1-15.1) % Plt Count (130-400) 10^3/c mm MPV (7.4-10.4) fL Neut % (Auto) % Lymph % (Auto) % Bradley % (Auto) % Eos % (Auto) % Baso % (Auto) % Neut # (Auto) (1.8-7.7) 10^3/u L Lymph # (Auto) (0.8-4.8) 10^3/u L Bradley # (Auto) (0.2-0.9) 10^3/u L Eos # (Auto) (0.0-0.8) 10^3/u L Baso # (Auto) (0.0-0.1) 10^3/u L Nucleated RBC % (a uto) % Nucleated RBCs # /100WBC Sodium 140 (136-145) mmol/L Potassium 3.8 (3.5-5.1) mmol/L Chloride 104 (98-107) mmol/L Carbon Dioxide 29 (22-29) mmol/L Anion Gap 10.8 (5-19) BUN 7 (6-20) mg/dL Creatinine 0.6 L (0.7-1.2) mg/dL GFR Calculation 160.4 H (90-130) mL/min Glucose 98 (65-115) mg/dL Calculated Osmolal ity 288 (285-295) mOsm/k g Calcium 9.7 (8.5-10.5) mg/dL Total Bilirubin 0.2 (0.15-1.2) mg/dL AST 43 H (0-40) U/L ALT 70 H (0-41) U/L Alkaline Phosphata se 91 (40-130) IU/L Total Protein 7.1 (6.6-8.7) g/dL Albumin 4.2 (3.5-5.2) g/dL Globulin 2.9 (1.3-4.6) g/dL Urine Color (Yellow) Urine Appearance (CLEAR) Urine pH (5-7) Ur Specific Gravit y (1.005-1.030) Urine Protein (Negative) Urine Glucose (UA) (Normal) Urine Ketones (Negative) Urine Blood (Negative) Urine Nitrate (Negative) Urine Bilirubin (Negative) Urine Urobilinogen (Negative) mg/dL Ur Leukocyte Daphne ase (Negative) Salicylates < 0.3 L (3-10) mg/dL Urine Opiates Scre en (Negative) ng/mL Acetaminophen < 5.0 L (10-30) ug/mL Ur Barbiturates Sc reen (Negative) ng/mL Ur Phencyclidine S crn (Negative) ng/mL Ur Amphetamines Sc reen (Negative) ng/mL U Benzodiazepines Scrn (Negative) ng/mL Urine Cocaine Scre en (Negative) ng/mL U Marijuana (THC) Screen (Negative) ng/mL Ethyl Alcohol < 10 (0-10) mg/dL Discharge Plan Discharge Patient Disposition: Admitted As Inpatient Clinical Impression: Suicidal ideation, Drug-induced psychotic disorder, Methamphetamine abuse Condition: Stable Referrals: Maninder Cesar MD [Primary Care Provider] - Coding Level of Care Code ED Slubber Tender for Chg Fwd Exam Comprehensive
[2020-06-23 08:51] VITALS: BP 143/83; PULSE 113; RESP 18; O2SAT 100
--- NOTE | 2020-06-23 08:55 | PC.NURSE ---
Pt belongings removed, pt placed in paper scrubs and sitter at bedside. Pt instructed to give urine sample.
[2020-06-23 09:12] LABS: Add Urine Microscopic? NO
[2020-06-23 09:15] LABS: Bilirubin Urine Neg (Negative); Blood Urine Neg (Negative); Glucose Urine UA Norm (Normal); Ketones Urine Negative (Negative); Leukocyte Esterase Urine Negative (Negative); Nitrate Urine Negative (Negative); Protein Urine Neg (Negative); Specific Gravity, Urine 1.005 (1.005-1.030); Urine Appearance Clear (CLEAR); Urine Color Straw (Yellow); Urobilinogen Urine Norm (Negative); pH Urine 7 (5-7)
[2020-06-23] MEDS: LORazepam 2 mg/mL INJ 1 mL IM (09:16)
[2020-06-23 09:24] LABS: Amphetamines Screen Urine Positive (Negative); Barbiturates Screen Urine Negative (Negative); Benzodiazepines Screen Urine Negative (Negative); Cocaine Screen Urine Negative (Negative); Opiate Screen Urine Negative (Negative); PCP Screen Urine Negative (Negative); THC Screen Urine Positive (Negative)
--- NOTE | 2020-06-23 09:27 | PC.NURSE ---
sandwich and drink given
[2020-06-23 10:15] LABS: Basophils # 0.1 10^3/uL (0.0-0.1); Eosinophils # 0.6 10^3/uL (0.0-0.8); Eosinophils % 5.6 %; Hematocrit 43.6 % (42.0-52.0); Hemoglobin 14.4 g/dL (11.7-16.6); Lymphocytes # 3.4 10^3/uL (0.8-4.8); Lymphocytes % 33.4 %; Mean Corpuscular Hemoglobin 30.4 pg (28.0-34.0); Mean Corpuscular Volume 92.2 fL (80-94); Mean Platelet Volume 9.5 fL (7.4-10.4); Monocytes # 0.9 10^3/uL (0.2-0.9); Monocytes % 9.1 %; Neutrophils # 5.19 10^3/uL (1.8-7.7); Neutrophils % 50.3 %; Nucleated Red Blood Cells % 0 %; Platelet Count 370 10^3/cmm (130-400); Red Blood Count 4.73 10^6/uL (4.1-5.3); Red Cell Distribution Width 12.7 % (12.1-15.1); White Blood Count 10.3 10^3/uL (4.0-10.0)
[2020-06-23 10:34] LABS: Alanine Aminotransferase 70 U/L (0-41); Albumin Level 4.2 g/dL (3.5-5.2); Alkaline Phosphatase 91 IU/L (40-130); Anion Gap 10.8 (5-19); Aspartate Amino Transferase 43 U/L (0-40); Blood Urea Nitrogen 7 mg/dL (6-20); Calcium 9.7 mg/dL (8.5-10.5); Carbon Dioxide 29 mmol/L (22-29); Chloride 104 mmol/L (98-107); Globulin 2.9 g/dL (1.3-4.6); Glomerular Filtration Rate 160.4 mL/min (90-130); Glucose 98 mg/dL (65-115); Osmolality Calculated 288 mOsm/kg (285-295); Potassium 3.8 mmol/L (3.5-5.1); Sodium 140 mmol/L (136-145); Total Bilirubin 0.2 mg/dL (0.15-1.2); Total Protein 7.1 g/dL (6.6-8.7)
[2020-06-23 10:43] LABS: Acetaminophen < 5.0 ug/mL (10-30); Alcohol Level < 10 mg/dL (0-10); Salicylate < 0.3 mg/dL (3-10)
[2020-06-23] MEDS: haloperidol inj 5 mg/mL INJ 1 mL IM (11:04)
[2020-06-23] MEDS: diphenhydrAMINE 50 mg/mL SDV 1mL IM (11:04)
[2020-06-23 11:30] VITALS: BP 119/65; PULSE 109; RESP 21; TEMP 36.9; O2SAT 100
[2020-06-23 12:04] VITALS: BP 111/64; PULSE 91; RESP 18; TEMP 36.9; O2SAT 96
--- NOTE | 2020-06-23 12:15 | PC.NURSE ---
Arrival to floor from ED Patient brought from ED. Patient asleep when in wheelchair. ED personnel quality assurance auditor stated they had to give him medication for agitation. Per [employer], patient stood up from wheelchair and fell onto bed and went back to sleep. Nurses had to change patient into green scrubs. Patient would not wake enough to answer any questions or signs any admission forms.
[2020-06-23 18:13] VITALS: BP 128/83; PULSE 89; RESP 18; TEMP 36.8; O2SAT 99
[2020-06-23] MEDS: hyDROXYzine 25 mg Capsule 50 MG PO (18:25)
[2020-06-23 22:00] VITALS: BP 128/83; PULSE 89; RESP 18; TEMP 36.8; O2SAT 99
[2020-06-24 06:00] VITALS: BP 116/79; PULSE 92; RESP 16; TEMP 36.7; O2SAT 97
[2020-06-24 09:52] VITALS: BP 116/79; PULSE 92; RESP 16; TEMP 36.7; O2SAT 97
[2020-06-24] MEDS: LORazepam 2 mg/mL INJ 1 mL IM (10:45)
[2020-06-24] MEDS: ziprasidone 20 mg/mL SDV (10:45)
--- NOTE | 2020-06-24 10:45 | PC.NURSE ---
Addendum entered by Petra Soriano LPN 06/24/20 11:37: prn meds effective pt asleep in bed in room Original Note: BEHAVIOR/DESTRUCTION OF PROPERTY/PRN GEODON & ATIVAN PT CAME DOWN THE HALLWAY, UPSET THAT HE HASN'T SPOKEN TO A SECURITY MANAGER YET, YELLING AND CURSING, PUNCHED 2 HOLES INTO THE WALL IN THE MALE SIDE HALLWAY. STAFF ASKS PT TO CEASE BEHAVIOR, PT SPOKE WITH THE PHYSICIAN. PHYSICIAN ORDERED STAT INJECTIONS OF GEODON/ATIVAN. GEODON 20 MG GIVEN IM IN LEFT DELTOID, ATIVAN 2 MG GIVEN IM IN RIGHT DELTOID. WILL CONT TO MONITOR BEHAVIOR
[2020-06-24 14:00] VITALS: RESP 17
[2020-06-24] MEDS: quetiapine 100 mg Tablet PO ×2 (16:31→20:38)
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
[2020-06-24] MEDS: LORazepam 1 mg Tablet PO ×2 (18:32→20:38)
[2020-06-24] MEDS: haloperidol 5 mg Tablet PO (18:32)
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
[2020-06-24] MEDS: quetiapine 300 mg Tablet 150 MG PO (20:38)
[2020-06-24] MEDS: mirtazapine 30 mg Tablet PO (20:39)
[2020-06-24 22:00] VITALS: BP 97/51; PULSE 89; RESP 16; TEMP 36.6; O2SAT 98
[2020-06-25 06:00] VITALS: RESP 16
[2020-06-25] MEDS: quetiapine 100 mg Tablet PO ×2 (08:20→13:35)
[2020-06-25] MEDS: LORazepam 1 mg Tablet PO (08:20)
--- NOTE | 2020-06-25 13:09 | P.PN_ITS ---
Subjective NPU Subjective: Interval history: I am trying to get into rehab. Get me into rehab. What I to talk to Kristen. And are not I getting into rehab. Patient states that he slept well last night. He denies feeling uncomfortable today. He denies needing any adjustments in medications. He just feels that he should be able to leave here and go to rehab now. Mental Status Exam MSE Comments: Mental Status Exam: Patient is alert interpersonally engaged male. He is in no apparent physical distress. Eye contact is fleeting. He is not believed to be a reliable informant primarily due to cognitive issues. Appearance: hygiene is fair; no gross neurological deficits., gait is unremark able; AIMS=0 Speech: Speech is of normal rate and rhythm and easily understood. Questions are answered in short but complete sentences. Thought processes: Thought processes are concrete. Judgment is adequate for safety. Psychotic processes: There is no indication of guarding or paranoia. There is no attention to the internal stimuli. Auditory and visual hallucinations are denied. Judgment: Insight is poor. Problem solving skills are adequate for safety. Orientation: The patient is oriented to person, place time and situation. Memory: no deficits noted in immediate, intermediate, or remote spheres. Attention: The patient is alert and interpersonally engaged. Language: Verbalizations are coherent. Fund of knowledge: Fund of knowledge is poor. Affect/Mood: Affect is extremely irritable with a undeclared mood. pt denies suicidal ideation Affective range is constricted Psychosis: Perception and reality testing are significantly impaired by his level of cognitive disability. This is amplified by the irritability most likely secondary to methamphetamine withdrawal. Cognition: Patient Appearance: Appropriate Level of Consciousness: Awake, Alert, Appropriate and Follows Commands Patient Cognition Impaired: No Ability to Follow Directions: Good Patient Orientation (long list): Person, Place, Time, Name, Age, Birthday, Day of Month, Day of Week, Month, Time of Day and Year Comprehension Ability: No Impairment Hallucination Type: None Delusion Description: Not Present Thought Process: Appropriate Affect: Affect Description: Appropriate and Calm Depressive Symptoms: Increased Anxiety and Recurrent Thoughts of or Suicide Behavior: Patient Behavior: Appropriate Speech Pattern: Appropriate and Clear Vitals/I&O/Wt Last Vital Signs Temp 97.8 F 06/24/20 22:00 Pulse 89 06/24/20 22:00 Resp 16 06/25/20 06:00 BP 97/51 06/24/20 22:00 Pulse Ox 98 06/24/20 22:00 Data NPU : 06/23/20 10:03 06/23/20 10:03 A&P Assessment and plan (1) Drug-induced psychotic disorder: Status: Acute (2) Methamphetamine abuse: Status: Acute Additional A&P Information Due to the psychiatric conditions and treatment listed in the Assessment and Plan - the patient requires continued hospitalization. Will provide a safe and therapeutic environment for patient.. Will continue inpatient treatment to allow for medication adjustment and monitoring. Will continue q15 min safety checks. Will continue past effective medications: Imipramine Tab (Tofranil Tab) 100 MG PO BEDTIME Mirtazapine Tab (Remeron Tab) 30 MG PO BEDTIME Quetiapine Tab (Seroquel Tab) 200 MG PO HS Quetiapine Tab (Seroquel Tab) 100 MG PO BIDWM And add lorazepam 1 mg 3 times daily especially for the withdrawal. Hospital day #2: The patient continues to demand entry into methamphetamine rehab immediately. Fuses to engage in conversation on any other topic. He denies that he is in physical or emotional distress even though his irritability is to an extent that he is not capable of engaging in a cooperative discussion. He voiced repeatedly his displeasure and his services he is getting here. He was reminded that he is a voluntary patient and is allowed to leave at his discretion. Perception and reality testing are significantly impaired by his level of cognitive disability. This is amplified by the irritability most likely secondary to methamphetamine withdrawal. This pattern was observed through his several admissions at this time last year. At that time he eventually was able to come into the hospital, remain long enough to have his amphetamine withdrawal resolved and be able to engage in a cooperative effort to get into rehab which was done successfully at that time. Evidence of his cognitive disability is that he learned nothing from that experience and has now returned to demanding and threatening demeanor for things that are out of our control. Plan: Continue previously effective medication regimen. Monitor patient's mood, sleep, appetite, and behavior closely. Encourage patient to participate in individual and group therapeutic sessions on the chilel. Estimated length of stay 5 days The expected benefits and potential side effects of patient's psychiatric med ications were discussed with the patient. The patient understands and consents to treatment. CRITERIA FOR DISCHARGE: stable on medications and no longer an imminent threat to self or others Involuntary Hold Information 96 Hour Hold: 96 Hour Involuntary Admission: No Attestations NPU Medical Necessity Statement*: Patient will remain in hospital another 2-4 nights until placement for methamphetamine rehab can be acquired. 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
[2020-06-25] MEDS: LORazepam 2 mg Tablet PO (13:35)
--- NOTE | 2020-06-25 14:07 | PC.NURSE ---
Patient Agitation Patient at nurses station on the phone with Kaila from [facility] for screening for rehab placement. Patient screaming into phone and cussing. Patient threw phone back into nurses station, line was on hold, patient states he will talk to her when she is back on the line. Once he is talking on the phone again he is yelling and cussing at them and hangs up. Patient offered medications to help with agitation and anxiety. Patient refused and screamed F you you stupid B. Dr. groves approached patient and asked what we could do to help patient. Patient states we should know what to do. Gave patient option to stay, but exercised his right to leave against medical advice. refused to sign AMA form and personal belonging form.
--- NOTE | 2020-06-25 14:24 | P.DS_ITS ---
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 This is his 15th admission to the neuropsychiatric unit since April 2012. His pattern over the past 2 years is to be admitted and a condition of methamphetamine psychosis. He is extremely irritable and easily agitated. Typically he will request to be admitted so that he can be placed in a rehabilitation program. However once on the unit, he become so volatile that he demands to leave. He is not an imminent risk to self or others and is allowed to leave AGAINST MEDICAL ADVICE. There have been several occasions when he was able to be maintained on the unit long enough for him to stabilize medically. At times, he has been here for several weeks without the volatility and aggression. He was hospitalized last June and finally was able to access placement in [facility] program. He remained free of hospitalizations until February of this year. However at that time, his methamphetamine withdrawal was managed he was restarted on his medications and was discharged. He returns today being admitted after having self discontinuing his medications. He is demanding to be placed in rehabilitation but really is not thinking clearly enough to be able to establish any type of a treatment plan. He was unable to be interviewed for more than a few minutes during which time he demanded first to be discharged and then for medication to help with his withdrawal. That was facilitated with the intent of restarting his previously effective medications as early as possible. Hospital Course Discharge Summary Assessment and plan (1) Drug-induced psychotic disorder: Status: Acute (2) Methamphetamine abuse: Status: Acute Additional A&P Information Due to the psychiatric conditions and treatment listed in the Assessment and Plan - the patient requires continued hospitalization. Will provide a safe and therapeutic environment for patient.. Will continue inpatient treatment to allow for medication adjustment and monitoring. Will continue q15 min safety checks. Will continue past effective medications: Imipramine Tab (Tofranil Tab) 100 MG PO BEDTIME Mirtazapine Tab (Remeron Tab) 30 MG PO BEDTIME Quetiapine Tab (Seroquel Tab) 200 MG PO HS Quetiapine Tab (Seroquel Tab) 100 MG PO BIDWM And add lorazepam 1 mg 3 times daily especially for the withdrawal. Hospital day #3: Interval history: I am trying to get into rehab. Get me into rehab. What I to talk to Kristen. And are not I getting into rehab. Patient states that he slept well last night. He denies feeling uncomfortable today. He denies needing any adjustments in medications. He just feels that he should be able to leave here and go to rehab now. The patient continues to demand entry into methamphetamine rehab immediately. Fuses to engage in conversation on any other topic. He denies that he is in physical or emotional distress even though his irritability is to an extent that he is not capable of engaging in a cooperative discussion. He voiced repeatedly his displeasure and his services he is getting here. He was reminded that he is a voluntary patient and is allowed to leave at his discretion. Perception and reality testing are significantly impaired by his level of cognitive disability. This is amplified by the irritability most likely secondary to methamphetamine withdrawal. This pattern was observed through his several admissions at this time last year. At that time he eventually was able to come into the hospital, remain long enough to have his amphetamine withdrawal resolved and be able to engage in a cooperative effort to get into rehab which was done successfully at that time. Evidence of his cognitive disability is that he learned nothing from that experience and has now returned to demanding and threatening demeanor for things that are out of our control. Plan: Continue previously effective medication regimen. Later that day, he continued his demanding explosive behavior. He repeatedly demanded to be placed in a rehabilitation program today. When confronted with the fact that one was not available today but that we would make him comfortable until 1 could be found just like the last time we found him placement, he called us liars and started displaying aggressive behavior hitting the wall and throwing phones. He did not make threats against staff. He did not make threats against himself. Multiple times he was offered as needed medication to help with his emotional distress. There is no indication of psychosis. There is no attention to internal stimuli. However he was not thinking logically. When given the choice of allowing us to help him maintain his behavior within safe limits or utilizing his option to leave AGAINST MEDICAL ADVICE, the patient decided to leave AGAINST MEDICAL ADVICE. He was informed that he was eligible to return and we would again assist him with finding a rehabilitation program with the expectation that he would maintain his behavior within acceptable limits such that staff and fellow patients could be guaranteed their safety. Involuntary Hold Information 96 Hour Hold: 96 Hour Involuntary Admission: No Mental Status Exam MSE Comments: Mental Status Exam: The patient was alert and interpersonally engaged. Eye contact was fleeting. He was observed to pace back and forth in front of the nurses station. His attitude was hostile. He frequently would slam his fist against the wall, the telephone, or the glass in front of the nurses station. He continued to make demands even though he was told that we were not in a position to caleb his demands. Appearance: hygiene is fair; no gross neurological deficits., gait is unremarkable; AIMS=0 Speech: Speech is of normal rate and rhythm and easily understood. Questions were answered in single complete sentences. Thought processes: Thought processes are concrete. Judgment is adequate for safety. Associations: intact Psychotic processes: There is no indication of guarding or paranoia. There is no attention to the internal stimuli. Auditory and visual hallucinations are denied. Judgment: Insight is fair. Problem solving skills are adequate for safety. Orientation: The patient is oriented to person, place time and situation. Memory: no deficits noted in immediate, intermediate, or remote spheres. Attention: The patient is alert and interpersonally engaged. Language: Verbalizations are coherent. Fund of knowledge: Fund of knowledge is adequate. Affect/Mood: Affect is irritable with a depressed mood. pt denies suicidal ideation Affective range is labile Psychosis: perception unimpaired primarily through cognitive deficit and severe cognitive distortion.; reality testing intact. 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
--- NOTE | 2020-06-26 15:33 | P.SS_ITS ---
Short Stay Summary Providers Date of Admit/Discharge: 06/26/20 Attending Provider: Hari Salazar MD Primary Care Provider: Maninder Cesar MD Chief Complaint: SI HPI History of Present Illness Julian Knowles is a 30 year old male who had just been discharged AGAINST MEDICAL ADVICE from the neuropsychiatric unit less than an hour before his presentation to the emergency room with the complaints described by the emergency room physician. The discharge summary from that hospitalization is listed below as it very much explains the process by which this patient came to be seen in the emergency room less than an hour later. 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 This is his 15th admission to the neuropsychiatric unit since April 2012. His pattern over the past 2 years is to be admitted and a condition of methamphetamine psychosis. He is extremely irritable and easily agitated. Typically he will request to be admitted so that he can be placed in a rehabilitation program. However once on the unit, he become so volatile that he demands to leave. He is not an imminent risk to self or others and is allowed to leave AGAINST MEDICAL ADVICE. There have been several occasions when he was able to be maintained on the unit long enough for him to stabilize medically. At times, he has been here for several weeks without the volatility and aggression. He was hospitalized last June and finally was able to access placement in 20 rehabilitation program. He remained free of hospitalizations until February of this year. However at that time, his methamphetamine withdrawal was managed he was restarted on his medications and was discharged. He returns today being admitted after having self discontinuing his medications. He is demanding to be placed in rehabilitation but really is not thinking clearly enough to be able to establish any type of a treatment plan. He was unable to be interviewed for more than a few minutes during which time he demanded first to be discharged and then for medication to help with his withdrawal. That was facilitated with the intent of restarting his previously effective medications as early as possible. Assessment and plan (1) Drug-induced psychotic disorder: Status: Acute (2) Methamphetamine abuse: Status: Acute Additional A&P Information Due to the psychiatric conditions and treatment listed in the Assessment and Plan - the patient requires continued hospitalization. Will provide a safe and therapeutic environment for patient.. Will continue inpatient treatment to allow for medication adjustment and monitoring. Will continue q15 min safety checks. Will continue past effective medications: Imipramine Tab (Tofranil Tab) 100 MG PO BEDTIME Mirtazapine Tab (Remeron Tab) 30 MG PO BEDTIME Quetiapine Tab (Seroquel Tab) 200 MG PO HS Quetiapine Tab (Seroquel Tab) 100 MG PO BIDWM And add lorazepam 1 mg 3 times daily especially for the withdrawal. Hospital day #3: Interval history: I am trying to get into rehab. Get me into rehab. What I to talk to Kristen. And are not I getting into rehab. Patient states that he slept well last night. He denies feeling uncomfortable today. He denies needing any adjustments in medications. He just feels that he should be able to leave here and go to rehab now. The patient continues to demand entry into methamphetamine rehab immediately. Fuses to engage in conversation on any other topic. He denies that he is in physical or emotional distress even though his irritability is to an extent that he is not capable of engaging in a cooperative discussion. He voiced repeatedly his displeasure and his services he is getting here. He was reminded that he is a voluntary patient and is allowed to leave at his discretion. Perception and reality testing are significantly impaired by his level of cognitive disability. This is amplified by the irritability most likely secondary to methamphetamine withdrawal. This pattern was observed through his several admissions at this time last year. At that time he eventually was able to come into the hospital, remain long enough to have his amphetamine withdrawal resolved and be able to engage in a cooperative effort to get into rehab which was done successfully at that time. Evidence of his cognitive disability is that he learned nothing from that experience and has now returned to demanding and threatening demeanor for things that are out of our control. Plan: Continue previously effective medication regimen. Later that day, he continued his demanding explosive behavior. He repeatedly demanded to be placed in a rehabilitation program today. When confronted with the fact that one was not available today but that we would make him comfortable until 1 could be found just like the last time we found him placement, he called us liars and started displaying aggressive behavior hitting the wall and throwing phones. He did not make threats against staff. He did not make threats against himself. Multiple times he was offered as needed medication to help with his emotional distress. There is no indication of psychosis. There is no attention to internal stimuli. However he was not thinking logically. When given the choice of allowing us to help him maintain his behavior within safe limits or utilizing his option to leave AGAINST MEDICAL ADVICE, the patient decided to leave AGAINST MEDICAL ADVICE. He was informed that he was eligible to return and we would again assist him with finding a rehabilitation program with the expectation that he would maintain his behavior within acceptable limits such that staff and fellow patients could be guaranteed their safety. Home Meds/Allergies Home Medications and Allergies Home Medications Medication Instructions Recorded Confirmed Type No Known Home Medications 06/23/20 06/25/20 History Allergies Allergy/AdvReac Type Severity Reaction Status Date / Time No Known Allergies Allergy Verified 06/25/20 15:00 PFSH Acute PFSH: Medical History Bipolar disorder Social History Smoking and tobacco status: current every day smoker cigarettes Years cigarettes smoked: 11 Quit status (tobacco): has tried quititng Number of times tried to quit tobacco: 2 Smoking risk assessment/counseling performed?: Yes Tobacco counseling given: counseling >3 minutes Vitals/I&O/Wt Last Vital Signs Temp 97.8 F 06/24/20 22:00 Pulse 89 06/24/20 22:00 Resp 16 06/25/20 06:00 BP 97/51 06/24/20 22:00 Pulse Ox 98 06/24/20 22:00 Physical Exam Narrative: EXAM NARRATIVE: Mental Status Exam: The patient was alert and interpersonally engaged. Eye contact was fleeting. He had been more engageable today than yesterday and was able to participate in any conversation except when he was under the burden of strong emotions. Unfortunately, because of his demeanor, he quickly escalated to a point where he had difficulty interacting in an adaptive way. Appearance: hygiene is fair; no gross neurological deficits., gait is unremarkable; AIMS=0 Speech: Speech is of normal rate and rhythm and easily understood. Questions were answered in single complete sentences. Thought processes: Thought processes are concrete. Judgment is adequate for safety. Associations: intact Psychotic processes: There is no indication of guarding or paranoia. There is no attention to the internal stimuli. Auditory and visual hallucinations are denied. Judgment: Insight is fair. Problem solving skills are adequate for safety. Orientation: The patient is oriented to person, place time and situation. Memory: no deficits noted in immediate, intermediate, or remote spheres. Attention: The patient is alert and interpersonally engaged. Language: Verbalizations are coherent. Fund of knowledge: Fund of knowledge is adequate. Affect/Mood: Affect is irritable with a depressed mood. pt denies suicidal ideation Affective range is labile Psychosis: perception unimpaired primarily through cognitive deficit and severe cognitive distortion.; reality testing intact. Hospital Course Hospital Course: The patient was admitted to the adult psychiatric unit and entered into the form of individual and group therapies as part of the unit protocol. They were provided 24-hour access to medication supervision and therapeutic activities by trained psychiatric nursing. The patient was educated with regard to potential benefits and side effects of new medications. We agreed to a contingency plan of discontinuation of medication in the event of intolerable side effects. Shortly after admission, he continued to be resistive even to the point of violently refusing to change in the hospital scrubs. Eventually, his cooperation was won and he slept through the night. When engaged by this physician the next morning, he was able to calmly cooperate with the plan that has worked in the past. He does not do well through the period of methamphetamine withdrawal. He was told that we would support that stabilization with what ever medications he felt would be of benefit within acceptable goal medical limits. He did well throughout the first part of the day. Later in the day, an attempt was made to engage his participation in interview for a rehabilitation program placement. What ever went on and that can telephone conversation set him into agitation. He demanded to leave AGAINST MEDICAL ADVICE. His wish was granted. Diagnoses at Discharge Discharge Diagnosis (1) Drug-induced psychotic disorder: Status: Resolved (2) Methamphetamine abuse: Status: Acute Discharge Plan Discharge Patient Disposition: Left Against Medical Advice Condition: Stable Prescriptions: No Action No Known Home Medications RF: 0 Referrals: Maninder Cesar MD [Primary Care Provider] - Discharge Date/Time: 06/25/20 14:07 Attestations Medical Necessity Statement*: Patient was discharged. Time Spent in Patient Care*: greater than 30 min Quality Metrics Clinical Quality Measures: During this hospital stay, did patient experience: None Coding Level of Care Code Acute Marriage Counselor Minister for Elizabeth Escamilla Diagnoses Drug-induced psychotic disorder F19.959 Methamphetamine abuse F15.10
== END 2020-06-25 14:07 | disposition left against medical advice (07) | DRG 894 ==
LOC: ER 10:41 → NP 11:26
PROVIDERS: Physician Assistant; Admitting Provider Psychiatry & Neurology Psychiatry; PCP Family Medicine; Visit Provider Psychiatry & Neurology Psychiatry
DX: F15.259 Other stimulant dependence with stimulant-induced psychotic disorder, unspecified (principal); Z91.14 Patient's other noncompliance with medication regimen; Z53.29 Procedure and treatment not carried out because of patient's decision for other reasons; F17.210 Nicotine dependence, cigarettes, uncomplicated; F31.9 Bipolar disorder, unspecified
CPT/HCPCS: 12345; 80053; 80306; 80307; 81003; 85025; 93005; 96372; 99284; J1200; J1630; J2060; J3486

== ENCOUNTER 2020-06-25 14:45 | Inpatient (IN) | payer MEDICAID, SELFPAY ==
[2020-06-25 14:51] VITALS: BP 116/78; PULSE 120; RESP 18; TEMP 36.5; O2SAT 95; BMI 22.5
[2020-06-25 15:23] VITALS: O2SAT 95
[2020-06-25 15:35] LABS: Basophils # 0.1 10^3/uL (0.0-0.1); Basophils % 0.5 %; Eosinophils # 0.5 10^3/uL (0.0-0.8); Eosinophils % 4.6 %; Hematocrit 46.7 % (42.0-52.0); Hemoglobin 15.9 g/dL (11.7-16.6); Lymphocytes % 29.1 %; Mean Corpuscular Hemoglobin 30.9 pg (28.0-34.0); Mean Corpuscular Volume 90.7 fL (80-94); Mean Platelet Volume 9.3 fL (7.4-10.4); Monocytes # 1.1 10^3/uL (0.2-0.9); Monocytes % 10.9 %; Neutrophils # 5.68 10^3/uL (1.8-7.7); Neutrophils % 54.6 %; Nucleated Red Blood Cells % 0 %; Platelet Count 391 10^3/cmm (130-400); Red Blood Count 5.15 10^6/uL (4.1-5.3); Red Cell Distribution Width 13.1 % (12.1-15.1); White Blood Count 10.4 10^3/uL (4.0-10.0)
--- NOTE | 2020-06-25 15:47 | ED_ITS ---
HPI - Psych General: Chief Complaint: Psychiatric Symptoms Stated Complaint: SI Time Seen by Provider: 06/25/20 15:05 History of Present Illness: HPI Narrative: 30 yo male presents emergency room after leaving the hospital earlier today AMA. Suspect he is under the influence he is tachycardic but still somewhat lethargic. He states he left he thought he had things under control and now he realizes he cannot manage she is not able to get into any homeless shelters he is homeless he cannot find anywhere to stay he became very depressed over his overall situation and states he is suicidal. When asked more specifics he gets quite agitated, even gets aggressive is cussing and swearing and screaming at me for review and talking to him. Discussed with him that in order to get him admitted we have to have a good understanding what is going on he still refused to discuss. I called the doctor to talk to Dr. Summers he recommended offering either p.o. or IM medicines for the agitation. If the patient is willing he will take the patient on admission. Patient states he is willing to stay we will go and admit for suicidal ideation. MD complaint: suicidal ideation Onset (ago): day(s) Duration: intermittent History of same: Yes Relieving factors: none Exacerbating factors: none Context: recent drug abuse Associated psychiatric symptoms: suicidal ideation, racing thoughts and delusions Associated symptoms: Reports delusions, depression, suicidal ideation and racing thoughts Treatments prior to arrival: none If self harm: admits thoughts of self harm and has plan Review of Systems General: Reports: ROS unobtainable due to medical condition (Patient refuses to discuss) Psych: Reports: depression and suicidal ideation [facility] ED PFSH: Medical History Bipolar disorder Social History Smoking and tobacco status: current every day smoker cigarettes Years cigar ettes smoked: 11 Quit status (tobacco): has tried quititng Number of times tried to quit tobacco: 2 Smoking risk assessment/counseling performed?: Yes Tobacco counseling given: counseling >3 minutes Physical Exam Const: COMMON NORMALS: no acute distress GENERAL APPEARANCE: cooperative and comfortable ORIENTATION/CONSCIOUSNESS: Yes oriented to person, Yes oriented to place and Yes oriented to time HENMT: COMMON NORMALS: normocephalic, atraumatic and hearing grossly normal bilaterally HEAD & SCALP: normocephalic and atraumatic Neck/C-Spine: COMMON NORMALS: no JVD Resp: COMMON NORMALS: normal respiratory effort, No retractions, No use of accessory muscles and clear to auscultation bilaterally AUSCULTATION: clear to auscultation bilaterally Cardio: COMMON NORMALS: no JVD, regular rate, regular rhythm and No murmurs present (Cardio) RATE: regular rate RHYTHM: regular rhythm GI: COMMON NORMALS: Soft to palpation and No hepatosplenomegaly present AUSCULTATION: Yes normoactive bowel sounds PALPATION: Yes Soft to palpation, No Tenderness to palpation present (GI), No Guarding due to palpation present (GI) and Yes No hepatosplenomegaly present Extremity: COMMON NORMALS: normal to inspection, capillary refill normal, no clubbing, cyanosis or edema, no calf tenderness and no pedal edema Neuro: SENSORIUM/ORIENTATION: Yes oriented to person, Yes oriented to place and Yes oriented to time Psych: THOUGHT CONTENT: Yes delusions Skin: COMMON NORMALS: no rashes or lesions noted GENERAL SKIN EXAM: no rashes or lesions noted MDM - Psych MDM Narrative: Medical decision making narrative: Will admit to the psychiatric unit under Dr. Summers. He is where the patient orders are written. Lab Data: Labs: Lab Results 06/25/20 06/25/20 06/25/20 Range/Units 15:20 15:20 15:25 WBC 10.4 H (4.0-10.0) 10^3/ uL RBC 5.15 (4.1-5.3) 10^6/u L Hgb 15.9 (11.7-16.6) g/dL Hct 46.7 (42.0-52.0) % MCV 90.7 (80-94) fL MCH 30.9 (28.0-34.0) pg MCHC 34.0 (30.0-36.0) g/dL RDW 13.1 (12.1-15.1) % Plt Count 391 (130-400) 10^3/c mm MPV 9.3 (7.4-10.4) fL Neut % (Auto) 54.6 % Lymph % (Auto) 29.1 % [place] % (Auto) 10.9 % Eos % (Auto) 4.6 % Baso % (Auto) 0.5 % Neut # (Auto) 5.68 (1.8-7.7) 10^3/u L Lymph # (Auto) 3.0 (0.8-4.8) 10^3/u L [place] # (Auto) 1.1 H (0.2-0.9) 10^3/u L Eos # (Auto) 0.5 (0.0-0.8) 10^3/u L Baso # (Auto) 0.1 (0.0-0.1) 10^3/u L Nucleated RBC % (a uto) 0 % Nucleated RBCs # 0.0 /100WBC Sodium 138 (136-145) mmol/L Potassium 4.2 (3.5-5.1) mmol/L Chloride 100 (98-107) mmol/L Carbon Dioxide 29 (22-29) mmol/L Anion Gap 13.2 (5-19) BUN 20 (6-20) mg/dL Creatinine 0.8 (0.7-1.2) mg/dL GFR Calculation 115.1 (90-130) mL/min Glucose 100 (65-115) mg/dL Calculated Osmolal ity 289 (285-295) mOsm/k g Calcium 9.3 (8.5-10.5) mg/dL Total Bilirubin 0.2 (0.15-1.2) mg/dL AST 71 H (0-40) U/L ALT 116 H (0-41) U/L Alkaline Phosphata se 85 (40-130) IU/L Total Protein 7.4 (6.6-8.7) g/dL Albumin 4.3 (3.5-5.2) g/dL Globulin 3.1 (1.3-4.6) g/dL Urine Color Yellow (Yellow) Urine Appearance Clear (CLEAR) Urine pH 6.0 (5-7) Ur Specific Gravit y 1.020 (1.005-1.030) Urine Protein Neg (Negative) Urine Glucose (UA) Norm (Normal) Urine Ketones Negative (Negative) Urine Blood Neg (Negative) Urine Nitrate Negative (Negative) Urine Bilirubin Neg (Negative) Urine Urobilinogen Norm (Negative) mg/dL Ur Leukocyte Daphne ase Negative (Negative) Salicylates < 0.3 L (3-10) mg/dL Urine Opiates Scre en (Negative) ng/mL Acetaminophen < 5.0 L (10-30) ug/mL Ur Barbiturates Sc reen (Negative) ng/mL Ur Phencyclidine S crn (Negative) ng/mL Ur Amphetamines Sc reen (Negative) ng/mL U Benzodiazepines Scrn (Negative) ng/mL Urine Cocaine Scre en (Negative) ng/mL U Marijuana (THC) Screen (Negative) ng/mL Ethyl Alcohol < 10 (0-10) mg/dL 06/25/20 Range/Units 15:25 WBC (4.0-10.0) 10^3/ uL RBC (4.1-5.3) 10^6/u L Hgb (11.7-16.6) g/dL Hct (42.0-52.0) % MCV (80-94) fL MCH (28.0-34.0) pg MCHC (30.0-36.0) g/dL RDW (12.1-15.1) % Plt Count (130-400) 10^3/c mm MPV (7.4-10.4) fL Neut % (Auto) % Lymph % (Auto) % [place] % (Auto) % Eos % (Auto) % Baso % (Auto) % Neut # (Auto) (1.8-7.7) 10^3/u L Lymph # (Auto) (0.8-4.8) 10^3/u L [place] # (Auto) (0.2-0.9) 10^3/u L Eos # (Auto) (0.0-0.8) 10^3/u L Baso # (Auto) (0.0-0.1) 10^3/u L Nucleated RBC % (a uto) % Nucleated RBCs # /100WBC Sodium (136-145) mmol/L Potassium (3.5-5.1) mmol/L Chloride (98-107) mmol/L Carbon Dioxide (22-29) mmol/L Anion Gap (5-19) BUN (6-20) mg/dL Creatinine (0.7-1.2) mg/dL GFR Calculation (90-130) mL/min Glucose (65-115) mg/dL Calculated Osmolal ity (285-295) mOsm/k g Calcium (8.5-10.5) mg/dL Total Bilirubin (0.15-1.2) mg/dL AST (0-40) U/L ALT (0-41) U/L Alkaline Phosphata se (40-130) IU/L Total Protein (6.6-8.7) g/dL Albumin (3.5-5.2) g/dL Globulin (1.3-4.6) g/dL Urine Color (Yellow) Urine Appearance (CLEAR) Urine pH (5-7) Ur Specific Gravit y (1.005-1.030) Urine Protein (Negative) Urine Glucose (UA) (Normal) Urine Ketones (Negative) Urine Blood (Negative) Urine Nitrate (Negative) Urine Bilirubin (Negative) Urine Urobilinogen (Negative) mg/dL Ur Leukocyte Daphne ase (Negative) Salicylates (3-10) mg/dL Urine Opiates Scre en Negative (Negative) ng/mL Acetaminophen (10-30) ug/mL Ur Barbiturates Sc reen Negative (Negative) ng/mL Ur Phencyclidine S crn Negative (Negative) ng/mL Ur Amphetamines Sc reen Positive H (Negative) ng/mL U Benzodiazepines Scrn Positive H (Negative) ng/mL Urine Cocaine Scre en Negative (Negative) ng/mL U Marijuana (THC) Screen Positive H (Negative) ng/mL Ethyl Alcohol (0-10) mg/dL Discharge Plan Discharge Patient Disposition: Admitted As Inpatient Admit Provider: Hari Salazar Clinical Impression: Suicidal ideation, Drug-induced psychotic disorder, Methamphetamine abuse, Bipolar disorder Condition: Stable Referrals: Maninder Cesar MD [Primary Care Provider] - Discharge Date/Time: 06/25/20 17:34 Coding Level of Care Code ED Construction Equipment Overhauler for Chg Fwd Exam Comprehensive
[2020-06-25 15:54] LABS: Acetaminophen < 5.0 ug/mL (10-30); Alanine Aminotransferase 116 U/L (0-41); Albumin Level 4.3 g/dL (3.5-5.2); Alcohol Level < 10 mg/dL (0-10); Alkaline Phosphatase 85 IU/L (40-130); Anion Gap 13.2 (5-19); Aspartate Amino Transferase 71 U/L (0-40); Blood Urea Nitrogen 20 mg/dL (6-20); Calcium 9.3 mg/dL (8.5-10.5); Carbon Dioxide 29 mmol/L (22-29); Chloride 100 mmol/L (98-107); Globulin 3.1 g/dL (1.3-4.6); Glomerular Filtration Rate 115.1 mL/min (90-130); Glucose 100 mg/dL (65-115); Osmolality Calculated 289 mOsm/kg (285-295); Potassium 4.2 mmol/L (3.5-5.1); Salicylate < 0.3 mg/dL (3-10); Sodium 138 mmol/L (136-145); Total Bilirubin 0.2 mg/dL (0.15-1.2); Total Protein 7.4 g/dL (6.6-8.7)
[2020-06-25 16:13] LABS: Add Urine Microscopic? NO
[2020-06-25 16:18] LABS: Bilirubin Urine Neg (Negative); Blood Urine Neg (Negative); Glucose Urine UA Norm (Normal); Ketones Urine Negative (Negative); Leukocyte Esterase Urine Negative (Negative); Nitrate Urine Negative (Negative); Protein Urine Neg (Negative); Urine Appearance Clear (CLEAR); Urine Color Yellow (Yellow); Urobilinogen Urine Norm (Negative)
[2020-06-25] MEDS: OLANZapine 10 mg TABLET 20 MG PO (16:22)
[2020-06-25] MEDS: LORazepam 2 mg Tablet PO (16:22)
[2020-06-25 16:23] LABS: Amphetamines Screen Urine Positive (Negative); Barbiturates Screen Urine Negative (Negative); Benzodiazepines Screen Urine Positive (Negative); Cocaine Screen Urine Negative (Negative); Opiate Screen Urine Negative (Negative); PCP Screen Urine Negative (Negative); THC Screen Urine Positive (Negative)
--- NOTE | 2020-06-25 16:42 | ECG_ITS ---
[facility] Test Date: 2020-06-25 Pat Name: Julian Knowles Department: Room: Gender: Male User Support Analyst Supervisor: : [id number] Requested By: Gucci Delgadillo Order Number: [id number] Reading MD: Measurements Intervals Holt Rate: 120 P: 66 CA: 129 QRS: 61 QRSD: 85 T: 46 QT: 297 QTc: 421 Interpretive Statements SINUS TACHYCARDIA ABNORMAL RHYTHM ECG No previous ECG available for comparison [id number]
[2020-06-25 17:24] VITALS: BP 103/62; PULSE 100; RESP 14; O2SAT 95
[2020-06-25 17:34] VITALS: BP 104/68; PULSE 112; RESP 20; TEMP 36.6; O2SAT 96
--- NOTE | 2020-06-25 18:10 | PC.NURSE ---
Admit from ED Patient resistive to care, screaming and cussing at nursing staff. Refusing to cooperate with procedures and sign admission paperwork. Patient being verbally aggressive and sexually explicit while screaming at staff. Dr. Salazar notified and aware. Patient instructed that he needs to comply with rules of the unit and if he refuses, he will be discharged. Patient finally changed into green scrubs and continued to refuse to answer questions.
--- NOTE | 2020-06-25 18:16 | PC.RESP ---
Smoking Cessation information sent to patient.
[2020-06-25 19:58] VITALS: RESP 16
--- NOTE | 2020-06-25 19:58 | PC.NURSE ---
Was not able to get the rest of the vials but I did get the respirations on patient.
[2020-06-25] MEDS: quetiapine 300 mg Tablet PO (21:33)
[2020-06-25] MEDS: quetiapine 100 mg Tablet PO (21:33)
[2020-06-25] MEDS: trazodone 50 mg Tablet PO (21:33)
[2020-06-25] MEDS: hyDROXYzine 25 mg Capsule 50 MG PO (21:33)
--- NOTE | 2020-06-25 23:34 | PC.NURSE ---
violent behavior 2252-called Radames from Security office, pt came wondering down the hallway yelling, waving his arms, cursing profanity. He came to the window of the nurses station put his head down and mumbled under his breath. Staff asked him to repeat what he said. He began to curse, hit the windows with his fists, grab the sides of the windows, and yell. He let go of the windows, stumbled down the hallway toward the dayroom on the men's hallway. He was upset about his pizza that his mother & aunt had bought him- in his state of mind he believes this is real. Pt is disoriented, needed to find his room, RN Kan escorted him to his room, pt yelled at him calling him a fat fucking bitch a mother fucker and told him to get the fuck out of his room , waved his arms around wildly, and went to his bed screaming get out 2321- called Radames from security office, pt screaming, yelling in his room, stumbling into roebrts, swinging his arms. He spoke to pt. He laid back down in his bed, talking unintelligibly, and moved into another bed in . He is incoherent since he received his seroquel which was scheduled medication. Pt is in a dreamlike state at the moment, sedated with his seroquel, an not able to consent to any other medication at this time. 2328- called physician, Dr. Salazar, informed him of the violent outburst this pt is having. He state, if patient is a danger to himself, staff, or other patients that it is appropriate to give IM medications even though this patient is a voluntary admission. Checked hospital policy for agreement. Contacted Armature Straightener, Desirae, to inform her of the possibility of a Code 10 as a result of escalated behavior with staff. Patient is sleeping, mumbling, but calm in his room at this time.No medication given at this time.
--- NOTE | 2020-06-26 05:02 | PC.NURSE ---
Patient arrived at nurses station laying his head in his arms and mumbling something . When asked what he was saying he started yelling profanities at Krysten R.N. and myself. He then proceeded to pound on the glass at the nurses station , of which he was [place] not to do.( Security was called ) He went down the us yelling something about Ramos, his aunt and his mother...came back to the nurses station and pounded on the glass grabbing it and shaking it. He was eventually verbally deescalated, however continued to be agitated. He asked Where's my Fucking room !! I escorted him to his room where he proceeded to be aggressive toward me telling me to get the F..k out. As I was vacating he approached me calling me profane names and acting as he was going to get physically aggressive. I told him I was leaving and backed away.
[2020-06-26 05:40] VITALS: RESP 16
--- NOTE | 2020-06-26 05:40 | PC.NURSE ---
Was unable to get the rest of the vitals on patient. but was able to get respirations.
[2020-06-26] MEDS: quetiapine 100 mg Tablet PO (10:46)
--- NOTE | 2020-06-26 14:10 | PC.NURSE ---
refused scheduled Seroquel
--- NOTE | 2020-06-26 14:19 | PC.NURSE ---
AGGRESSIVE BEHAVIOR PT UP TO NURSES STATION, CURSING, ROAD SUPERVISOR ATTEMPTING TO DISCUSS POSSIBLE REHAB WITH PT. PT WILL NOT LISTEN TO ROAD SUPERVISOR, YELLING IN HER FACE. PHONE CALL WAS MADE [place] [facility] [place] BEGINS YELLING LOUDLY ON THE PHONE, EVENTUALLY HUNG UP ON THE PERSON ON THE PHONE. SECURITY ASKS PT TO STOP YELLING, PT NOT RESPONDING TO VERBAL INSTRUCTION FROM STAFF/SECURITY. PHYSICIAN STEPS INTO HALLWAY TO SPEAK TO PT, PT CONT TO BE VERBALLY ASSAULTIVE WITH STAFF/PHYSICIAN, SCREAMING AT STAFF TO JUST LET HIM GO NOW! AMA ORDER GIVEN BY Dariela COLLAZO. PT GIVEN PERSONAL BELONGINGS, FILLED OUT AMA PAPERWORK, AMBULATED OFF UNIT WITHOUT ASSISTANCE.
[2020-06-26 14:34] VITALS: RESP 16
== END 2020-06-26 14:20 | disposition left against medical advice (07) | DRG 885 ==
LOC: ER 16:14 → NP 16:52
PROVIDERS: Family Medicine; Admitting Provider Psychiatry & Neurology Psychiatry; PCP Family Medicine; Visit Provider Psychiatry & Neurology Psychiatry
DX: F31.9 Bipolar disorder, unspecified (principal); R45.851 Suicidal ideations; Z59.0 Homelessness; Z53.29 Procedure and treatment not carried out because of patient's decision for other reasons; F17.210 Nicotine dependence, cigarettes, uncomplicated; F15.10 Other stimulant abuse, uncomplicated
CPT/HCPCS: 12345; 36415; 80053; 80306; 80307; 81003; 85025; 93005; 99284

== ENCOUNTER 2021-08-08 21:48 | Inpatient (IN) | payer MEDICAID, SELFPAY ==
[2021-08-08 21:54] VITALS: BP 108/67; PULSE 112; RESP 18; TEMP 36.6; O2SAT 98; BMI 22.9
[2021-08-08 22:34] LABS: Basophils # 0.1 10^3/uL (0.0-0.1); Basophils % 0.7 %; Eosinophils # 0.4 10^3/uL (0.0-0.8); Eosinophils % 3.4 %; Hematocrit 45.3 % (42.0-52.0); Hemoglobin 15.6 g/dL (11.7-16.6); Lymphocytes # 3.3 10^3/uL (0.8-4.8); Mean Corpuscular HGB Conc 34.4 g/dL (30.0-36.0); Mean Corpuscular Hemoglobin 30.4 pg (28.0-34.0); Mean Corpuscular Volume 88.3 fl (80-94); Monocytes # 1.2 10^3/uL (0.2-0.9); Monocytes % 10.6 %; Neutrophils # 6.33 10^3/uL (1.8-7.7); Nucleated Red Blood Cells % 0 %; Platelet Count 466 10^3/cmm (130-400); Red Blood Count 5.13 10^6/uL (4.1-5.3); Red Cell Distribution Width 12.3 % (12.1-15.1); White Blood Count 11.3 10^3/uL (4.0-10.0)
[2021-08-08 22:44] LABS: Alanine Aminotransferase 8 U/L (0-41); Albumin Level 4.3 g/dL (3.5-5.2); Alkaline Phosphatase 95 IU/L (40-130); Anion Gap 17.7 (5-19); Aspartate Amino Transferase 11 U/L (0-40); Blood Urea Nitrogen 20 mg/dL (6-20); Carbon Dioxide 22 mmol/L (22-29); Chloride 102 mmol/L (98-107); Globulin 3.3 g/dL (1.3-4.6); Glomerular Filtration Rate 159.3 mL/min (90-130); Glucose 142 mg/dL (65-115); Osmolality Calculated 291 mOsm/kg (285-295); Potassium 3.7 mmol/L (3.5-5.1); Sodium 138 mmol/L (136-145); Total Bilirubin 0.2 mg/dL (0.15-1.2); Total Protein 7.6 g/dL (6.6-8.7)
[2021-08-08 22:46] LABS: Acetaminophen < 5.0 ug/mL (10-30); Alcohol Level < 10 mg/dL (0-10); Salicylate < 0.3 mg/dL (3-10)
[2021-08-08 22:52] VITALS: BP 114/67; PULSE 108; RESP 19; O2SAT 96
[2021-08-08 22:56] LABS: Add Urine Microscopic? NO; Charge for UA Resulting for Rev
[2021-08-08 23:00] LABS: Bilirubin Urine 1+ (Negative); Blood Urine Neg (Negative); Glucose Urine UA Norm (Normal); Ketones Urine 1+ (Negative); Leukocyte Esterase Urine Negative (Negative); Nitrate Urine Negative (Negative); Protein Urine Neg (Negative); Specific Gravity, Urine 1.025 (1.005-1.030); Urine Appearance Clear (CLEAR); Urine Color Yellow (Yellow); Urobilinogen Urine Norm (Negative); pH Urine 5 (5-7)
[2021-08-08 23:06] LABS: Amphetamines Screen Urine Positive (Negative); Barbiturates Screen Urine Negative (Negative); Benzodiazepines Screen Urine Negative (Negative); Cocaine Screen Urine Negative (Negative); Opiate Screen Urine Negative (Negative); PCP Screen Urine Negative (Negative); THC Screen Urine Positive (Negative)
[2021-08-09 01:36] VITALS: BP 125/70; PULSE 107; RESP 14; O2SAT 99
[2021-08-09 01:51] VITALS: BP 124/71; PULSE 131; RESP 18; TEMP 36.9; O2SAT 97
[2021-08-09 01:58] VITALS: BP 124/71; PULSE 131; RESP 18; TEMP 36.9; O2SAT 97
--- NOTE | 2021-08-09 04:57 | W.ED.PSYCHS ---
HPI - Psych General: Chief Complaint: Psychiatric Symptoms Stated Complaint: Si wants back on Medication Time Seen by Provider: 08/08/21 22:15 History of Present Illness: MD complaint: suicidal ideation and feels depressed Onset (ago): hour(s) Duration: constant and getting worse History of same: Yes Relieving factors: none Exacerbating factors: drug use Associated psychiatric symptoms: depression and suicidal ideation Associated symptoms: Deny homicidal ideation or suicidal ideation Treatments prior to arrival: none If self harm: admits thoughts of self harm and has plan Review of Systems Const: Denies: fever(s) or chills Card: Denies: chest pain or palpitations Resp: Denies: dyspnea GI: Denies: abdominal pain or vomiting Psych: Denies: suicidal ideation or homicidal ideation PFS ED PFSH: Medical History (Updated 08/09/21 @ 05:06 by Konstantin Chamberlain DO) Bipolar disorder Social History Smoking and tobacco status: current every day smoker cigarettes Years cigarettes smoked: 11 Quit status (tobacco): has tried quititng Number of times tried to quit tobacco: 2 Smoking risk assessment/counseling performed?: Yes Tobacco counseling given: counseling >3 minutes Physical Exam Const: GENERAL APPEARANCE: cooperative, comfortable and lethargic; not ill appearing ORIENTATION/CONSCIOUSNESS: Yes lethargic Eye: COMMON NORMALS: Equal, round and reactive pupils present and EOMs intact bilaterally PUPIL: Yes Equal, round and reactive pupils present Chest: COMMONS NORMALS: normal inspection of the chest Resp: COMMON NORMALS: normal respiratory effort, No use of accessory muscles and clear to auscultation bilaterally AUSCULTATION: clear to auscultation bilaterally Cardio: COMMON NORMALS: regular rate and regular rhythm RATE: regular rate RHYTHM: regular rhythm GI: COMMON NORMALS: Normal to inspection, nondistended, normoactive bowel sounds present and Soft to palpation PALPATION: Yes Soft to palpation Neuro: SENSORIUM/ORIENTATION: Yes lethargic CRANIAL NERVES: Yes CN normal except as noted SPEECH: speech normal Course Consultations: Consultation #1: shukri Vital Signs: Vital signs: Vital Signs Temperature 98.4 F 08/09/21 04:59 Pulse Rate 131 H 08/09/21 04:59 Respiratory Rate 18 08/09/21 04:59 Blood Pressure 124/71 08/09/21 04:59 Pulse Oximetry 97 08/09/21 01:58 MDM - Psych MDM Narrative: Medical decision making narrative: 31-year-old male who is suicidal with a plan. He admits to drug use. He will be placed under 96-hour hold. He is medically stable. He will go to the neuropsychiatric unit. Lab Data: Labs: Lab Results 08/08/21 08/08/21 08/08/21 22:08 22:08 22:45 WBC 11.3 10^3/uL H 10 ^3/uL (4.0-10.0) RBC 5.13 10^6/uL 10^6 /uL (4.1-5.3) Hgb 15.6 g/dL g/dL (11.7-16.6) Hct 45.3 % % (42.0-52.0) MCV 88.3 fl fl (80-94) MCH 30.4 pg pg (28.0-34.0) MCHC 34.4 g/dL g/dL (30.0-36.0) RDW 12.3 % % (12.1-15.1) Plt Count 466 10^3/cmm H 10 ^3/cmm (130-400) MPV 9.0 fL fL (7.4-10.4) Neut % (Auto) 56.0 % % Lymph % (Auto) 29.0 % % [place] % (Auto) 10.6 % % Eos % (Auto) 3.4 % % Baso % (Auto) 0.7 % % Neut # (Auto) 6.33 10^3/uL 10^3 /uL (1.8-7.7) Lymph # (Auto) 3.3 10^3/uL 10^3/ uL (0.8-4.8) [place] # (Auto) 1.2 10^3/uL H 10^ 3/uL (0.2-0.9) Eos # (Auto) 0.4 10^3/uL 10^3/ uL (0.0-0.8) Baso # (Auto) 0.1 10^3/uL 10^3/ uL (0.0-0.1) Nucleated RBC % (a uto) 0 % % Nucleated RBCs # 0.0 /100WBC /100W BC Sodium 138 mmol/L mmol/L (136-145) Potassium 3.7 mmol/L mmol/L (3.5-5.1) Chloride 102 mmol/L mmol/L (98-107) Carbon Dioxide 22 mmol/L mmol/L (22-29) Anion Gap 17.7 (5-19) BUN 20 mg/dL mg/dL (6-20) Creatinine 0.6 mg/dL L mg/dL (0.7-1.2) GFR Calculation 159.3 mL/min H mL /min (90-130) Glucose 142 mg/dL H mg/dL (65-115) Calculated Osmolal ity 291 mOsm/kg mOsm/ kg (285-295) Calcium 9.0 mg/dL mg/dL (8.5-10.5) Total Bilirubin 0.2 mg/dL mg/dL (0.15-1.2) AST 11 U/L U/L (0-40) ALT 8 U/L U/L (0-41) Alkaline Phosphata se 95 IU/L IU/L (40-130) Total Protein 7.6 g/dL g/dL (6.6-8.7) Albumin 4.3 g/dL g/dL (3.5-5.2) Globulin 3.3 g/dL g/dL (1.3-4.6) Urine Color Yellow (Yellow) Urine Appearance Clear (CLEAR) Urine pH 5 (5-7) Ur Specific Gravit y 1.025 (1.005-1.030) Urine Protein Neg (Negative) Urine Glucose (UA) Norm (Normal) Urine Ketones 1+ H (Negative) Urine Blood Neg (Negative) Urine Nitrate Negative (Negative) Urine Bilirubin 1+ H (Negative) Urine Urobilinogen Norm mg/dL mg/dL (Negative) Ur Leukocyte Daphne ase Negative (Negative) Salicylates < 0.3 mg/dL L mg/ dL (3-10) Urine Opiates Scre en Acetaminophen < 5.0 ug/mL L ug/ mL (10-30) Ur Barbiturates Sc reen Ur Phencyclidine S crn Ur Amphetamines Sc reen U Benzodiazepines Scrn Urine Cocaine Scre en U Marijuana (THC) Screen Ethyl Alcohol < 10 mg/dL mg/dL (0-10) 08/08/21 22:45 WBC RBC Hgb Hct MCV MCH MCHC RDW Plt Count MPV Neut % (Auto) Lymph % (Auto) [place] % (Auto) Eos % (Auto) Baso % (Auto) Neut # (Auto) Lymph # (Auto) [place] # (Auto) Eos # (Auto) Baso # (Auto) Nucleated RBC % (a uto) Nucleated RBCs # Sodium Potassium Chloride Carbon Dioxide Anion Gap BUN Creatinine GFR Calculation Glucose Calculated Osmolal ity Calcium Total Bilirubin AST ALT Alkaline Phosphata se Total Protein Albumin Globulin Urine Color Urine Appearance Urine pH Ur Specific Gravit y Urine Protein Urine Glucose (UA) Urine Ketones Urine Blood Urine Nitrate Urine Bilirubin Urine Urobilinogen Ur Leukocyte Daphne ase Salicylates Urine Opiates Scre en Negative ng/mL ng /mL (Negative) Acetaminophen Ur Barbiturates Sc reen Negative ng/mL ng /mL (Negative) Ur Phencyclidine S crn Negative ng/mL ng /mL (Negative) Ur Amphetamines Sc reen Positive ng/mL H ng/mL (Negative) U Benzodiazepines Scrn Negative ng/mL ng /mL (Negative) Urine Cocaine Scre en Negative ng/mL ng /mL (Negative) U Marijuana (THC) Screen Positive ng/mL H ng/mL (Negative) Ethyl Alcohol Discharge Plan Discharge Patient Disposition: Admitted As Inpatient Admit Provider: Manish Knight Clinical Impression: Suicidal ideation Drug-induced psychotic disorder Qualifiers: Complication of substance-induced condition: with hallucinations Qualified Code(s): F19.951 - Other psychoactive substance use, unspecified with psychoactive substance-induced psychotic disorder with hallucinations Condition: Stable Coding Level of Care Code ED Greige Goods Examiner for Elizabeth Fwd Exam Detailed
[2021-08-09 04:59] VITALS: BP 124/71; PULSE 131; RESP 18; TEMP 36.9; BMI 22.9
--- NOTE | 2021-08-09 11:33 | W.PM.NPUH&PS ---
Providers/Chief Complaint Admitting Physician: Manish Knight MD Primary Care Provider: Maninder Cesar MD Chief Complaint: Si wants back on Medication HPI NPU History of Present Illness Julian Knowles is a 31 year old male presented to the emergency department the following report: Chief Complaint: Psychiatric Symptoms Stated Complaint: Si wants back on Medication Time Seen by Provider: 08/08/21 22:15 History of Present Illness: MD complaint: suicidal ideation and feels depressed Onset (ago): hour(s) Duration: constant and getting worse History of same: Yes Relieving factors: none Exacerbating factors: drug use Associated psychiatric symptoms: depression and suicidal ideation Associated symptoms: Deny homicidal ideation or suicidal ideation Treatments prior to arrival: none If self harm: admits thoughts of self harm and has plan. Initial neuropsychiatric unit for definitive treatment of those issues. Patient is known to this travel writer through multiple inpatient hospitalizations the last of which with this travel writer was in February 2020. He had 13/14 hospitalizations in the system prior to 2019 but only 2 subsequent to that this being the third. It is noteworthy that he has been hospitalized at other places so his inpatient stays are significant. He presents today reporting that he is feeling fairly down himself. He reports that he has had a period of significant success but then for the last year he has been in and out of recovery using off and on with no rhyme or reason. He really denies having any sense of what triggers his use and why he can just maintain his sobriety as he clearly knows he is better at those times. He endorsed an interest in possibly starting medication but reports that over the last year he has been mostly off of medication and was last on medication about a month ago as he was taking the prescription from the most recent hospitalization. He endorses that he struggles with methamphetamine off and on. He denies being in any active treatment other than hospitalizations in the last year. We discussed the risk benefits and alternatives of considering restarting some medication and he understood and agreed proceed as is documented in this note. He reports he will likely start something but is not sure what to commit to at this very moment and we agreed to discuss first in the morning. He also is not clear about what he wants to do. He knows that rehab is a consideration but at this point has not made a decision as to what he will do to manage his life overall. He denies having a clear place to go at this point. An excerpt from his last visit in May 2020 included below for context. 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 This is his 15th admission to the neuropsychiatric unit since April 2012. His pattern over the past 2 years is to be admitted and a condition of methamphetamine psychosis. He is extremely irritable and easily agitated. Typically he will request to be admitted so that he can be placed in a rehabilitation program. However once on the unit, he become so volatile that he demands to leave. He is not an imminent risk to self or others and is allowed to leave AGAINST MEDICAL ADVICE. There have been several occasions when he was able to be maintained on the unit long enough for him to stabilize medically. At times, he has been here for several weeks without the volatility and aggression. He was hospitalized last June and finally was able to access placement in 20 rehabilitation program. He remained free of hospitalizations until February of this year. However at that time, his methamphetamine withdrawal was managed he was restarted on his medications and was discharged. He returns today being admitted after having self discontinuing his medications. He is demanding to be placed in rehabilitation but really is not thinking clearly enough to be able to establish any type of a treatment plan. He was unable to be interviewed for more than a few minutes during which time he demanded first to be discharged and then for medication to help with his withdrawal. That was facilitated with the intent of restarting his previously effective medications as early as possible. Hospital Course Discharge Summary Assessment and plan (1) Drug-induced psychotic disorder: Status: Acute (2) Methamphetamine abuse: Status: Acute Additional A&P Information Due to the psychiatric conditions and treatment listed in the Assessment and Plan - the patient requires continued hospitalization. Will provide a safe and therapeutic environment for patient.. Will continue inpatient treatment to allow for medication adjustment and monitoring. Will continue q15 min safety checks. Will continue past effective medications: Imipramine Tab (Tofranil Tab) 100 MG PO BEDTIME Mirtazapine Tab (Remeron Tab) 30 MG PO BEDTIME Quetiapine Tab (Seroquel Tab) 200 MG PO HS Quetiapine Tab (Seroquel Tab) 100 MG PO BIDWM And add lorazepam 1 mg 3 times daily especially for the withdrawal. Hospital day #3: Interval history: I am trying to get into rehab. Get me into rehab. What I to talk to Kristen. And are not I getting into rehab. Patient states that he slept well last night. He denies feeling uncomfortable today. He denies needing any adjustments in medications. He just feels that he should be able to leave here and go to rehab now. The patient continues to demand entry into methamphetamine rehab immediately. Fuses to engage in conversation on any other topic. He denies that he is in physical or emotional distress even though his irritability is to an extent that he is not capable of engaging in a cooperative discussion. He voiced repeatedly his displeasure and his services he is getting here. He was reminded that he is a voluntary patient and is allowed to leave at his discretion. Perception and reality testing are significantly impaired by his level of cognitive disability. This is amplified by the irritability most likely secondary to methamphetamine withdrawal. This pattern was observed through his several admissions at this time last year. At that time he eventually was able to come into the hospital, remain long enough to have his amphetamine withdrawal resolved and be able to engage in a cooperative effort to get into rehab which was done successfully at that time. Evidence of his cognitive disability is that he learned nothing from that experience and has now returned to demanding and threatening demeanor for things that are out of our control. Plan: Continue previously effective medication regimen. Later that day, he continued his demanding explosive behavior. He repeatedly demanded to be placed in a rehabilitation program today. When confronted with the fact that one was not available today but that we would make him comfortable until 1 could be found just like the last time we found him placement, he called us liars and started displaying aggressive behavior hitting the wall and throwing phones. He did not make threats against staff. He did not make threats against himself. Multiple times he was offered as needed medication to help with his emotional distress. There is no indication of psychosis. There is no attention to internal stimuli. However he was not thinking logically. When given the choice of allowing us to help him maintain his behavior within safe limits or utilizing his option to leave AGAINST MEDICAL ADVICE, the patient decided to leave AGAINST MEDICAL ADVICE. He was informed that he was eligible to return and we would again assist him with finding a rehabilitation program with the expectation that he would maintain his behavior within acceptable limits such that staff and fellow patients could be guaranteed their safety. Meds NPU Home Medications Medication Instructions Recorded Confirmed Last Taken Type No Known Home Medications 06/23/20 06/25/20 Unknown History Allergies Allergy/AdvReac Type Severity Reaction Status Date / Time No Known Allergies Allergy Verified 06/25/20 15:00 PFSH NPU PFSH: Medical History (Updated 08/09/21 @ 13:27 by Manish Knight MD) Bipolar disorder Social History Smoking and tobacco status: current every day smoker cigarettes Years cigarettes smoked: 11 Quit status (tobacco): has tried quititng Number of times tried to quit tobacco: 2 Smoking risk assessment/counseling performed?: Yes Tobacco counseling given: counseling >3 minutes Mental Status Exam MSE Comments: This is a well-nourished, well-developed white male with adequate dress grooming and eye contact. Significant tattooing on his exposed skin arms neck etc. No abnormal movements except for mild psychomotor retardation. Cooperative with exam mild distress. speech was limited and decreased rate and volume. Mood described as low; affect congruent. Thought process organized. Thought content: Patient denied any suicidal or homicidal ideations, no delusions were noted, he endorsed auditory but no visual hallucinations. Attention and concentration were intact and memory appears reliable with no more formally tested. He is alert and oriented ?3 insight and judgment are impaired. Impulse control is impaired. Vitals/I&O/Wt Last Vital Signs Temp 98.4 F 08/09/21 04:59 Pulse 131 H 08/09/21 04:59 Resp 18 08/09/21 04:59 BP 124/71 08/09/21 04:59 Pulse Ox 97 08/09/21 01:58 Weight last 48 hrs Weight 72.575 kg Weight 72.575 kg Data NPU : 08/08/21 22:08 08/08/21 22:08 A&P Assessment and plan (1) Psychosis: Status: Acute (2) Suicidal ideation: Status: Acute (3) Drug-induced psychotic disorder: Status: Acute Qualifiers: Complication of substance-induced condition: with hallucinations Qualified Code(s): F19.951 - Other psychoactive substance use, unspecified with psychoactive substance-induced psychotic disorder with hallucinations (4) Methamphetamine dependence: Status: Acute Additional A&P Information There is a 31-year-old white male with a long history of psychosis, methamphetamine use possible borderline mental functioning versus intellectual disability who presents off of medication and relapsing on methamphetamine. 1. Continue current medication. 2. Continue every 15 minute checks for safety. 3. Encourage individual, group and milieu therapy. 4. Explore opportunities at sober living facilities at the highest level of treatment to which he is willing to commit. Involuntary Hold Information 96 Hour Hold: 96 Hour Involuntary Admission: No Attestations NPU Medical Necessity Statement*: Inpatient hospitalization is medically necessary in the clinically appropriate intervention at this time. We will monitor medications and make adjustments as indicated. He will be in the hospital over two mid nights. Likely length of stay 4-6 days. Coding Level of Care Code Acute Watch Hairspring Assembler for Elizabeth Escaimlla Diagnoses Psychosis F29 Suicidal ideation R45.851 Drug-induced psychotic disorder F19.951 Complication of substance-induced condition: with hallucinations Methamphetamine dependence F15.20
[2021-08-09 14:00] VITALS: BP 120/79; PULSE 113; RESP 20; TEMP 36.6; O2SAT 95
[2021-08-09] MEDS: hyDROXYzine 25 mg Capsule 50 MG PO (14:05)
[2021-08-09 20:39] VITALS: BP 122/76; PULSE 90; RESP 17; TEMP 36.7; O2SAT 94
[2021-08-10 06:00] VITALS: BP 122/83; PULSE 76; RESP 18; TEMP 36.7; O2SAT 96
[2021-08-10] MEDS: OLANZapine 5 mg ODT PO (10:27)
--- NOTE | 2021-08-10 10:56 | PC.NURSE ---
At 10:00, Pt pacing and screaming at peers. Pt agitated and hitting roberts. Pt agreed to take medication. Zydis 5mg administered.
--- NOTE | 2021-08-10 12:57 | NPU.GN ---
[facility] Group Topic:Dori Harrington / Discussion General Mood of Group:Julian did not attend or participate in group today.
[2021-08-10 14:00] VITALS: BP 112/67; PULSE 86; RESP 16; TEMP 37.1; O2SAT 97
--- NOTE | 2021-08-10 15:28 | P.NPUPN_ITS ---
Subjective NPU Subjective: Interval history: Patient presents today having had a rough morning. There is another patient who is screaming incessantly which really set him off. We reviewed the medication that he has had in the past that seem to help but he continues to be ambivalent about a medication trial. Working with the treatment team about possible sober living options that he might consider. We discussed needing to make some kind of move in the next 24 hours to engage in active treatment but he continues to have some withdrawal irritability. Mental Status Exam MSE Comments: This is a well-nourished, well-developed white male with adequate dress grooming and eye contact. Significant tattooing on his exposed skin arms neck etc. No abnormal movements except for mild psychomotor lucinda rdation. Cooperative with exam mild distress but at times having significant distress. Speech was limited and decreased rate and volume. Mood described as depressed; affect congruent. Thought process organized. Thought content: Patient denied any suicidal or homicidal ideations, no delusions were noted, he endorsed auditory but no visual hallucinations. Attention and concentration were intact and memory appears reliable with no more formally tested. He is alert and oriented ?3 insight and judgment are impaired. Impulse control is impaired. Vitals/I&O/Wt Last Vital Signs Temp 98.7 F 08/10/21 14:00 Pulse 86 08/10/21 14:00 Resp 16 08/10/21 14:00 BP 112/67 08/10/21 14:00 Pulse Ox 97 08/10/21 14:00 Data NPU : 08/08/21 22:08 08/08/21 22:08 A&P Additional A&P Information (1) Psychosis: (2) Suicidal ideation: (3) Drug-induced psychotic disorder: (4) Methamphetamine dependence: Additional A&P Information There is a 31-year-old white male with a long history of psychosis, methamphetamine use possible borderline mental functioning versus intellectual disability who presents off of medication and relapsing on methamphetamine. 1. Continue current medication. 2. Continue every 15 minute checks for safety. 3. Encourage individual, group and milieu therapy. 4. Explore opportunities at sober living facilities at the highest level of treatment to which he is willing to commit. Involuntary Hold Information 96 Hour Hold: 96 Hour Involuntary Admission: No Attestations NPU Medical Necessity Statement*: npatient hospitalization is medically necessary in the clinically appropriate intervention at this time. We will monitor medications and make adjustments as indicated. Likely length of stay 2-5 days. Coding Level of Care Code Acute Fountain Supervisor for Elizabeth Escamilla
[2021-08-10 21:35] VITALS: BP 96/62; PULSE 65; RESP 18; TEMP 37.2; O2SAT 98
[2021-08-11 06:20] VITALS: BP 110/72; PULSE 80; RESP 16; TEMP 36.7; O2SAT 100
[2021-08-11] MEDS: hyDROXYzine 25 mg Capsule 50 MG PO (08:51)
[2021-08-11] MEDS: OLANZapine 5 mg ODT PO (09:11)
--- NOTE | 2021-08-11 13:17 | NPU.GN ---
[facility] Topic: Dori Harrington General Mood of Group: Julian did not attend group today. He wanted to sleep.
[2021-08-11 14:00] VITALS: BP 114/73; PULSE 104; RESP 18; TEMP 36.7; O2SAT 96
--- NOTE | 2021-08-11 19:20 | W.PM.NPUPNS ---
Subjective NPU Subjective: Interval history: Patient resents today reporting that things are going a little better especially since he decided to take the Zyprexa. He took Zyprexa today we discussed the risk benefits and alternatives of making a standing dose tomorrow with continued access to the as needed and he understood and agreed to proceed as is documented in this note. He seems identify that he is better when he takes the medication but he reports that he struggles with adherence especially with his active addiction. Mental Status Exam MSE Comments: This is a well-nourished, well-developed white male with adequate dress grooming and eye contact. Significant tattooing on his exposed skin arms neck etc. No abnormal movements except for mild psychomotor retardation. Cooperative with exam mild distress. Speech was limited and decreased rate and volume. Mood described as depressed; affect congruent. Thought process organized. Thought content: Patient denied any suicidal or homicidal ideations, no delusions were noted, he endorsed auditory but no visual hallucinations. Attention and concentration were intact and memory appears reliable with no more formally tested. He is alert and oriented ?3 insight and judgment are limited. Impulse control is impaired. Vitals/I&O/Wt Last Vital Signs Temp 98.0 F 08/11/21 14:00 Pulse 104 H 08/11/21 14:00 Resp 18 08/11/21 14:00 BP 114/73 08/11/21 14:00 Pulse Ox 96 08/11/21 14:00 Data NPU : 08/08/21 22:08 08/08/21 22:08 A&P Additional A&P Information (1) Psychosis: (2) Suicidal ideation: (3) Drug-induced psychotic disorder: (4) Methamphetamine dependence: Additional A&P Information There is a 31-year-old white male with a long history of psychosis, methamphetamine use possible borderline mental functioning versus intellectual disability who presents off of medication and relapsing on methamphetamine. 1. Continue current medication. Start Zyprexa 5 mg p.o. nightly tomorrow. 2. Continue every 15 minute checks for safety. 3. Encourage individual, group and milieu therapy. 4. Explore opportunities at sober living facilities at the highest level of treatment to which he is willing to commit. Involuntary Hold Information 96 Hour Hold: 96 Hour Involuntary Admission: No Attestations NPU Medical Necessity Statement*: npatient hospitalization is medically necessary in the clinically appropriate intervention at this time. We will monitor medications and make adjustments as indicated. Likely length of stay 1-4 days. Coding Level of Care Code Acute Senior Solutions Architect for Elizabeth Escamilla
[2021-08-11 19:50] VITALS: RESP 19
[2021-08-12 06:00] VITALS: BP 126/80; PULSE 55; RESP 16; O2SAT 97
[2021-08-12] MEDS: OLANZapine 5 mg ODT PO (09:03)
--- NOTE | 2021-08-12 09:19 | PC.NURSE ---
prn administered 5mg zyprexa for severe anxiety and agitation in clt. Will continue to monitor. Pt is pacing and angry, making phone calls, cussing at staff up at the nurses station. Pt is concerned that he has missed a court date, nurse explained that we can call and inquire about this matter. Pt is very upset and is wanting to leave.
--- NOTE | 2021-08-12 11:23 | NPU.GN ---
[facility] Topic: Checkers General Mood of Group: Julian did not attend group today.
--- NOTE | 2021-08-12 12:45 | P.NPUDS_ITS ---
Diagnoses at Discharge Discharge Diagnosis (1) Psychosis: Status: Acute (2) Suicidal ideation: Status: Resolved (3) Drug-induced psychotic disorder: Status: Acute Qualifiers: Complication of substance-induced condition: with hallucinations Qualified Code(s): F19.951 - Other psychoactive substance use, unspecified with psychoactive substance-induced psychotic disorder with hallucinations (4) Methamphetamine dependence: Status: Acute Reason for Visit Reason for Visit: Ricarda wants back on Medication Brief History: History of Present Illness Julian Knowles is a 31 year old male presented to the emergency department the following report: Chief Complaint: Psychiatric Symptoms Stated Complaint: Ricarda wants back on Medication Time Seen by Provider: 08/08/21 22:15 History of Present Illness: MD complaint: suicidal ideation and feels depressed Onset (ago): hour(s) Duration: constant and getting worse History of same: Yes Relieving factors: none Exacerbating factors: drug use Associated psychiatric symptoms: depression and suicidal ideation Associated symptoms: Deny homicidal ideation or suicidal ideation Treatments prior to arrival: none If self harm: admits thoughts of self harm and has plan. Initial neuropsychiatric unit for definitive treatment of those issues. Patient is known to this conventional mortgage underwriter through multiple inpatient hospitalizations the last of which with this conventional mortgage underwriter was in February 2020. He had 13/14 hospitalizations in the system prior to 2019 but only 2 subsequent to that this being the third. It is noteworthy that he has been hospitalized at other places so his inpatient stays are significant. He presents today reporting that he is feeling fairly down himself. He reports that he has had a period of significant success but then for the last year he has been in and out of recovery using off and on with no rhyme or reason. He really denies having any sense of what triggers his use and why he can just maintain his sobriety as he clearly knows he is better at those times. He endorsed an interest in possibly starting medication but reports that over the last year he has been mostly off of medication and was last on medicat ion about a month ago as he was taking the prescription from the most recent hospitalization. He endorses that he struggles with methamphetamine off and on. He denies being in any active treatment other than hospitalizations in the last year. We discussed the risk benefits and alternatives of considering restarting some medication and he understood and agreed proceed as is documented in this no te. He reports he will likely start something but is not sure what to commit to at this very moment and we agreed to discuss first in the morning. He also is not clear about what he wants to do. He knows that rehab is a consideration but at this point has not made a decision as to what he will do to manage his life overall. He denies having a clear place to go at this point. An excerpt from h is last visit in May 2020 included below for context. Per his 06/25/[address] [facility] inpatient psychiatric discharge summary: SI Brief History: History of Present Illness Julian Knowles is a 30-year-old male well-known to this mental health program who was admitted once again in the throes of amphetamine psychosis. This is his 15th admission to the neuropsychiatric unit since April 2012. His pattern over the past 2 years is to be admitted and a condition of methamphetamine psychosis. He is extremely irritable and easily agitated. Typically he will request to be admitted so that he can be placed in a rehabilitation program. However once on the unit, he become so volatile that he demands to leave. He is not an imminent risk to self or others and is allowed to leave AGAINST MEDICAL ADVICE. There have been several occasions when he was able to be maintained on the unit long enough for him to stabilize medically. At times, he has been here for several weeks without the volatility and aggression. He was hospitalized last June and finally was able to access placement in 20 rehabilitation program. He remained free of hospitalizations until February of this year. However at that time, his methamphetamine withdrawal was managed he was restarted on his medications and was discharged. He returns today being admitted after having self discontinuing his medications. He is demanding to be placed in rehabilitation but really is not thinking clearly enough to be able to establish any type of a treatment plan. He was unable to be interviewed for more than a few minutes during which time he demanded first to be discharged and then for medication to help with his withdrawal. That was facilitated with the intent of restarting his previously effective medications as early as possible. Hospital Course Discharge Summary Assessment and plan (1) Drug-induced psychotic disorder: Status: Acute (2) Methamphetamine abuse: Status: Acute Additional A&P Information Due to the psychiatric conditions and treatment listed in the Assessment and Plan - the patient requires continued hospitalization. Will provide a safe and therapeutic environment for patient.. Will continue inpatient treatment to allow for medication adjustment and monitoring. Will continue q15 min safety checks. Will continue past effective medications: Imipramine Tab (Tofranil Tab) 100 MG PO BEDTIME Mirtazapine Tab (Remeron Tab) 30 MG PO BEDTIME Quetiapine Tab (Seroquel Tab) 200 MG PO HS Quetiapine Tab (Seroquel Tab) 100 MG PO BIDWM And add lorazepam 1 mg 3 times daily especially for the withdrawal. Hospital day #3: Interval history: I am trying to get into rehab. Get me into rehab. What I to talk to Kristen. And are not I getting into rehab. Patient states that he slept well last night. He denies feeling uncomfortable today. He denies needing any adjustments in medications. He just feels that he should be able to leave here and go to rehab now. The patient continues to demand entry into methamphetamine rehab immediately. Fuses to engage in conversation on any other topic. He denies that he is in physical or emotional distress even though his irritability is to an extent that he is not capable of engaging in a cooperative discussion. He voiced repeatedly his displeasure and his services he is getting here. He was reminded that he is a voluntary patient and is allowed to leave at his discretion. Perception and reality testing are significantly impaired by his level of cognitive disability. This is amplified by the irritability most likely secondary to methamphetamine withdrawal. This pattern was observed through his several admissions at this time last year. At that time he eventually was able to come into the hospital, remain long enough to have his amphetamine withdrawal resolved and be able to engage in a cooperative effort to get into rehab which was done successfully at that time. Evidence of his cognitive disability is that he learned nothing from that experience and has now returned to demanding and threatening demeanor for things that are out of our control. Plan: Continue previously effective medication regimen. Later that day, he continued his demanding explosive behavior. He repeatedly demanded to be placed in a rehabilitation program today. When confronted with the fact that one was not available today but that we would make him comfortable until 1 could be found just like the last time we found him placement, he called us liars and started displaying aggressive behavior hitting the wall and throwing phones. He did not make threats against staff. He did not make threats against himself. Multiple times he was offered as needed medication to help with his emotional distress. There is no indication of psychosis. There is no attention to internal stimuli. However he was not thinking logically. When given the choice of allowing us to help him maintain his behavior within safe limits or utilizing his option to leave AGAINST MEDICAL ADVICE, the patient decided to leave AGAINST MEDICAL ADVICE. He was informed that he was eligible to return and we would again assist him with finding a rehabilitation program with the expectation that he would maintain his behavior within acceptable limits such that staff and fellow patients could be guaranteed their safety. Hospital Course Hospital Course He very slowly acclimated to the individual, group and milieu therapies provided. He was initially resistant to medication but as he continued to detox from the methamphetamine he became more open to resuming Zyprexa which is helped him in the past. He was quite ambivalent about what to do moving forward given his lack of long-term success off of the drugs and sometimes difficulty getting refills because of some nonadherence issues. He showed some improvement and was able to contract for safety outside the hospital prior to discharge. During the hospitalization, patient had routine laboratory studies which were within normal limits except for few outliers. Additionally there was a general medical evaluation which was also within normal limits and revealed no new acute processes. Discharge Summary: At the time of discharge, lethality was denied and psychosis was resolving. Mood and anxiety were well managed. Patient endorsed a plan to avoid all drugs of abuse and follow-up with the aftercare recommendations of the treatment team. Patient was evaluated and deemed to be absent credible lethality, and had achieved the maximum benefit from an inpatient hospitalization, so was discharged. Involuntary Hold Information 96 Hour Hold: 96 Hour Involuntary Admission: No Mental Status Exam MSE Comments: This is a well-nourished, well-developed white male with adequate dress grooming and eye contact. Significant tattooing on his exposed skin arms neck etc. No abnormal movements except for mild psychomotor retardation. Cooperative with exam no acute distress. Speech was slightly more spontaneous and more normal rate and volume. Mood described as a little better; affect congruent. Thought process organized. Thought content: Patient denied any suicidal or homicidal ideations, no delusions were noted, he endorsed auditory but no visual hallucinations. Attention and concentration were intact and memory appears reliable with no more formally tested. He is alert and oriented ?3 insight and judgment are limited. Impulse control is impaired. Discharge Data Vitals: Last Vital Signs Temp 98.0 F 08/11/21 14:00 Pulse 55 L 08/12/21 06:00 Resp 16 08/12/21 06:00 BP 126/80 08/12/21 06:00 Pulse Ox 97 08/12/21 06:00 Discharge Plan Discharge Patient Disposition: Home Condition: Stable Prescriptions: New olanzapine 5 mg Tablet 5 mg PO BEDTIME 30 Days Qty: 30 RF: 1 No Action No Known Home Medications RF: 0 Discharge Orders: Discharge Order (Routine); Ordered 08/12/21 Ordered By: Manish Knight Referrals: Maninder Cesar MD [Primary Care Provider] - Discharge Diet: Regular Discharge Activity: Resume usual activity Patient Instructions: Opioid Safety Discharge Attestations NPU Time Spent in Discharge Care*: less than 30 min Specific Discharge Activities: Specific discharge activities: educating patient, discussing with leather case finisher/social workers/dc planners, documenting/other paperwork and evaluating patient/reviewing data Coding Level of Care Code Acute Chg FW DC note Diagnoses Psychosis F29 Suicidal ideation R45.851 Drug-induced psychotic disorder F19.951 Complication of substance-induced condition: with hallucinations Methamphetamine dependence F15.20
[2021-08-12 13:03] VITALS: BP 126/80; PULSE 55; RESP 16; O2SAT 97
== END 2021-08-12 13:15 | disposition home or self-care (01) | DRG 885 ==
LOC: ER 22:15 → NP 08-09 01:27
PROVIDERS: Admitting Provider Psychiatry & Neurology Psychiatry; Emergency Provider Emergency Medicine; PCP Family Medicine; Visit Provider Psychiatry & Neurology Psychiatry
DX: F29 Unspecified psychosis not due to a substance or known physiological condition (principal); F15.251 Other stimulant dependence with stimulant-induced psychotic disorder with hallucinations; R45.851 Suicidal ideations; F17.210 Nicotine dependence, cigarettes, uncomplicated
CPT/HCPCS: 80053; 80306; 80307; 81003; 85025; 97165; 99285

== ENCOUNTER 2024-06-02 21:17 | Emergency (ER) | payer SELFPAY ==
[2024-06-02 21:22] VITALS: BP 141/83; PULSE 123; RESP 18; TEMP 36.7; O2SAT 97; BMI 18.6
--- NOTE | 2024-06-02 21:51 | ED.C_ITS ---
Documented by User: RADHA Landry 06/02/24 23:40 HPI - Psych General: Chief Complaint: Psychiatric Symptoms Stated Complaint: SI,HI Time Seen by Provider: 06/02/24 21:34 History of Present Illness: Julian Knowles is a 34-year-old man that presents to the emergency department with complaints of too fucking high . Patient reports that he has been using methamphetamine. On clear or unsure of frequency and last known use. Patient dates that he feels very agitated and then he cannot calm down. He denies suicidal ideation, denies harming anybody, but does report that he has urges to harm others. These urges, intermittently. Patient is argumentative. He mumbles and rambles and it is difficult to determine if he has any specific complaints. Related Data Home Medications Medication Instructions Recorded Confirmed No Known Home Medications 08/09/21 08/09/21 Previous Rx's Medication Instructions Recorded olanzapine 5 mg tablet 5 mg PO BEDTIME 30 days #30 tabs 08/12/21 Allergies Allergy/AdvReac Type Severity Reaction Status Date / Time No Known Allergies Allergy Verified 06/25/20 15:00 Review of Systems General: Reports: ROS unobtainable due to medical condition PFS ED PFSH: Medical History (Updated 06/02/24 @ 21:54 by RADHA Landry) Bipolar disorder Social History Smoking and tobacco/nicotine status: current every day tobacco/nicotine user cigarettes Years cigarettes smoked: 11 Quit status (tobacco/nicotine): has tried quititng Number of times tried to quit tobacco: 2 Physical Exam Const: COMMON NORMALS: no acute distress, patient oriented x3 and alert GENERAL APPEARANCE: cooperative ORIENTATION/CONSCIOUSNESS: Yes awake, Yes oriented to person, Yes oriented to place and Yes oriented to time HENMT: COMMON NORMALS: normocephalic and atraumatic HEAD & SCALP: normocephalic and atraumatic FACE & SINUS: normal facial exam MOUTH: Normal oral and palatal mucosa present THROAT: posterior oropharynx normal Eye: COMMON NORMALS: Equal, round and reactive pupils present, EOMs intact bilaterally, conjunctivae normal and no scleral icterus GENERAL EYE: appearance normal, both eyes and all related structures ALIGNMENT: Yes alignment normal PERIORBITAL: periorbital findings normal CONJUNCTIVA: Yes conjunctivae normal PUPIL: Yes Equal, round and reactive pupils present Neck/C-Spine: COMMON NORMALS: full ROM GENERAL: Yes normal visual inspection Lymph: LYMPHATIC: no lymphadenopathy noted Chest: COMMONS NORMALS: normal inspection of the chest Breast/axilla inspection: Yes no chest deformity, asymmetry, normal contours, no nodules, masses, tenderness Resp: COMMON NORMALS: normal respiratory effort, No retractions, No use of accessory muscles and clear to auscultation bilaterally EFFORT & INSPECTION: Yes able to speak in complete sentences and Yes symmetric chest movement AUSCULTATION: clear to auscultation bilaterally Cardio: COMMON NORMALS: regular rate, regular rhythm and Peripheral pulses 2+ throughout RATE: regular rate RHYTHM: regular rhythm PERIPHERAL PULSES: Peripheral pulses 2+ throughout GI: COMMON NORMALS: Normal to inspection, nondistended, normoactive bowel sounds present, Soft to palpation, non-tender and No hepatosplenomegaly present INSPECTION: Yes normal to inspection AUSCULTATION: Yes normoactive bowel so unds PALPATION: Yes Soft to palpation and Yes No hepatosplenomegaly present RECTAL EXAM: Yes deferred Extremity: COMMON NORMALS: normal to inspection GENERAL: Yes normal exam except as noted Neuro: COMMON NORMALS: patient oriented x3 SENSORIUM/ORIENTATION: Yes alert, Yes oriented to person, Yes oriented to place and Yes oriented to time CRANIAL NERVES: Yes CN normal except as noted Psych: COMMON NORMALS: mental status grossly normal, Normal thought process present, cooperative, activity/motor behavior normal, denies homicidal ideation and denies suicidal ideation THOUGHT PROCESS: Normal thought process present Skin: COMMON NORMALS: no rashes or lesions noted, no wounds and turgor normal GENERAL SKIN EXAM: no rashes or lesions noted and turgor normal Course Vital Signs: Vital signs: Vital Signs Temperature 98.1 F 06/02/24 21:22 Pulse Rate 76 06/03/24 02:39 Respiratory Rate 18 06/02/24 21:22 Blood Pressure 102/57 06/03/24 02:39 Pulse Oximetry 99 06/03/24 02:39 Oxygen Delivery Me thod Room Air 06/02/24 21:22 MDM - Psych Medical Decision Making Patient evaluated today in the emergency department for complaints of agitation, aggression. He arrives after use of methamphetamine. He is verbally aggressive and very agitated. Denies harming himself or others but reports desire to harm others. He has auditory and visual hallucinations. I consulted Dr. Chamberlain early on. He is recommending Geodon and Ativan and letting him sleep it off for a while. They will reevaluate once he wakes up. Recheck of patient. Heart rate is now low 90s and blood pressures 103 systolic. He is resting quietly. I will transition care to Dr. Chamberlain. No radiology studies performed this visit Discharge Plan Discharge Patient Disposition: Home Clinical Impression: Psychosis, Methamphetamine dependence, Methamphetamine abuse, Drug-induced psychotic disorder Condition: Stable Prescriptions: No Action No Known Home Medications olanzapine 5 mg Tablet 5 mg PO BEDTIME 30 Days Qty: 30 1RF Discharge Orders: Discharge ED (Routine); Ordered 06/03/24 Ordered By: Konstantin Chamberlain Referrals: Maninder Cesar MD [Primary Care Provider] - 1-3 days Patient Instructions: Methamphetamine Use Disorder (ED), Opioid Safety, Pain Management Activity Restrictions/Additional Instructions: Return for problems. Coding Level of Care Code ED Casual Shoe Inspector for Chg Fwd Documented by User: Konstantin Chamberlain DO 06/03/24 05:26 HPI - Psych General: Chief Complaint: Psychiatric Symptoms Stated Complaint: SI,HI Time Seen by Provider: 06/02/24 21:34 Related Data Home Medications Medication Instructions Recorded Confirmed No Known Home Medications 08/09/21 08/09/21 Previous Rx's Medication Instructions Recorded olanzapine 5 mg tablet 5 mg PO BEDTIME 30 days #30 tabs 08/12/21 Allergies Allergy/AdvReac Type Severity Reaction Status Date / Time No Known Allergies Allergy Verified 06/25/20 15:00 [facility] ED PFSH: Medical History (Updated 06/02/24 @ 21:54 by RADHA Landry) Bipolar disorder Social History Smoking and tobacco/nicotine status: current every day tobacco/nicotine user cigarettes Years cigarettes smoked: 11 Quit status (tobacco/nicotine): has tried quititng Number of times tried to quit tobacco: 2 Course Vital Signs: Vital signs: Vital Signs Temperature 98.1 F 06/02/24 21:22 Pulse Rate 76 06/03/24 02:39 Respiratory Rate 18 06/02/24 21:22 Blood Pressure 102/57 06/03/24 02:39 Pulse Oximetry 99 06/03/24 02:39 Oxygen Delivery Me thod Room Air 06/02/24 21:22 MDM - Psych Medical Decision Making Patient evaluated today in the emergency department for complaints of agitation, aggression. He arrives after use of methamphetamine. He is verbally aggressive and very agitated. Denies harming himself or others but reports desire to harm others. He has auditory and visual hallucinations. I consulted Dr. Chamberlain early on. He is recommending Geodon and Ativan and letting him sleep it off for a while. They will reevaluate once he wakes up. Recheck of patient. Heart rate is now low 90s and blood pressures 103 systolic. He is resting quietly. I will transition care to Dr. Chamberlain. Patient was originally seen by ANJANA Johnson. I agree with her history, evaluation, and treatment. Spoke with the patient. He has been resting comfortably. He is not suicidal or homicidal at this point. With improvement in his symptoms, he will be allowed discharge. Medically, he is stable. Discharge Plan Discharge Patient Disposition: Home Clinical Impression: Psychosis, Methamphetamine dependence, Methamphetamine abuse, Drug-induced psychotic disorder Condition: Stable Prescriptions: No Action No Known Home Medications olanzapine 5 mg Tablet 5 mg PO BEDTIME 30 Days Qty: 30 1RF Discharge Orders: Discharge ED (Routine); Ordered 06/03/24 Ordered By: Konstantin Chamberlain Referrals: Maninder Cesar MD [Primary Care Provider] - 1-3 days Patient Instructions: Methamphetamine Use Disorder (ED), Opioid Safety, Pain Management Activity Restrictions/Additional Instructions: Return for problems. Coding Level of Care Code ED Casual Shoe Inspector for Elizabeth Escamilla
[2024-06-02] MEDS: LORazepam 2 mg/mL INJ 1 mL IM (22:00)
[2024-06-02] MEDS: ziprasidone 20 mg/mL SDV IM (22:00)
[2024-06-02] MEDS: water for injection-sterile 10 ML (22:03)
[2024-06-02 23:43] VITALS: BP 103/59; PULSE 97; O2SAT 96
[2024-06-03 00:40] VITALS: BP 102/66; PULSE 90; O2SAT 97
[2024-06-03 02:39] VITALS: BP 102/57; PULSE 76; O2SAT 99
[2024-06-03 04:00] VITALS: BP 109/60; PULSE 80; O2SAT 99
== END 2024-06-03 09:46 | disposition home or self-care (01) ==
PROVIDERS: Emergency Provider Emergency Medicine; PCP Family Medicine
DX: F15.259 Other stimulant dependence with stimulant-induced psychotic disorder, unspecified (principal); F17.210 Nicotine dependence, cigarettes, uncomplicated
CPT/HCPCS: 96372; 99284; J2060; J3486